=== PATIENT | female | born 1960 | race Caucasian/White ===

== ENCOUNTER 2018-11-02 22:19 | Inpatient (IN) | payer MEDICAID ==
[~2018-11-02] VITALS: Ht 152.4 cm; Wt 41.1 kg
[~2018-11-02 22:19] MED LIST: sevoflurane 250ml liquid IH ONE
[2018-11-02] MEDS ORDERED: magnesium 2GM in 50ml NS 50 ML IV PRN (22:20)
[2018-11-02] MEDS ORDERED: propofol 1000mg/100ml bottle 100 ML IV SCH (22:20)
[2018-11-02] MEDS ORDERED: potassium Cl 20mEq/100mL bag 100 ML IV PRN (22:20)
[2018-11-02] MEDS ORDERED: acetaminophen 650mg rectal suppository RC PRN (22:20)
[2018-11-02] MEDS ORDERED: magnesium 4gm in 100ml NS 100 ML IV PRN (22:20)
[2018-11-02 22:30] VITALS: BP 115/58
--- NOTE | 2018-11-02 22:30 | NUR ---
Patient arrived to unit via gurney accompanied by flight personnel, intubated and awake. Patient following commands, alert/oriented x4. Saturating at 99% on 30% FIO2 and PEEP 5. HR in low 100s in sinus tachycardia, BP 115/85 via automatic cuff. Patient's abdominal incision with woundvac running at 100mmHg at low continuous with 200mls serosanguineous drainage noted in canister upon arrival. 2 RN skin check performed. Patient arrived with TPN, propofol, LR, and TPN infusions running through PICC in R upper arm. June Lauren at bedside to assess patient, states to continue all infusions except TPN at this time. Fentanyl bag from [facility] wasted in pharmaceutical waste bin and witnessed by Deanna CORDERO.
[2018-11-02] MEDS ORDERED: propofol 1000mg/100ml bottle 100 ML IV ONE (22:39)
[2018-11-02 23:00] VITALS: BP 112/85
[2018-11-02] MEDS ORDERED: albuterol 2.5 MG/3 ML nebule NEB PRN (23:00)
[2018-11-02] MEDS: ringers solution, lacted 1,000 ML IV SCH (23:07)
[2018-11-02 23:11] LABS: ABG BASE EXCESS 0.6 mmol/L (-2.0-3.0); ABG HCO3 25.3 mmol/L (22.0-26.0); ABG OXYGEN SATURATION 97.1 % (95-98); ABG PH (T) 7.392 (7.350-7.450); ABG PO2 (T) 99.3 mmHg (83-108); ALLEN'S TEST Positive; FCOHb 0.3 % (0.5-1.5); FMetHb 0.2 % (0.3-1.12); FO2Hb 96.6 % (94-100); MINUTE VOLUME 8 L/min; PATIENT TEMPERATURE 38.2; PEEP 5 cm H2O; RESPIRATORY RATE 18 b/min; RESPIRATORY RATE (OBSERVED) 18 b/min; TIDAL VOLUME 350 mL; TOTAL HEMOGLOBIN 12.6 G/dl (12.0-16.0)
[2018-11-02] MEDS: ipratropium/albuterol 3ml nebule NEB SCH (23:19)
[2018-11-02] MEDS ORDERED: propofol 1000mg/100ml bottle 100 ML IV PRN (23:20)
[2018-11-02 23:24] LABS: BASOPHILS # (AUTO) 0.1 X10'3 (0-0.2); BASOPHILS % (AUTO) 0.4 % (0-1); EOSINOPHILS # (AUTO) 0.1 X10'3 (0-0.9); EOSINOPHILS % (AUTO) 0.6 % (0-6); HEMATOCRIT 34.7 % (35.0-45.0); HEMOGLOBIN 11.5 g/dl (12.0-16.0); LYMPHOCYTES # (AUTO) 0.8 X10'3 (1.1-4.8); LYMPHOCYTES % (AUTO) 4.8 % (21-51); MEAN CORPUSCULAR HEMOGLOBIN 28.6 PG (27.0-31.0); MEAN CORPUSCULAR HGB CONC 33.2 g/dL (33.0-36.5); MEAN CORPUSCULAR VOLUME 86.1 FL (78-98); MEAN PLATELET VOLUME 9.1 FL (7.4-10.4); MONOCYTES # (AUTO) 0.9 X10'3 (0-0.9); NEUTROPHILS # (AUTO) 15.5 X10'3 (1.8-7.7); NEUTROPHILS % (AUTO) 89.2 % (42-75); PLATELET COUNT 348 X10'3 (140-440); RED BLOOD COUNT 4.03 X10'6 (4.20-5.60); RED CELL DISTRIBUTION WIDTH 13.2 % (11.5-14.5); WHITE BLOOD COUNT 17.3 X10'3 (4.5-11.0)
[2018-11-02 23:40] LABS: PARTIAL THROMBOPLASTIN TIME 32 SECONDS (22-32)
[2018-11-02 23:42] LABS: ALANINE AMINOTRANSFERASE 25 U/L (12-78); ALBUMIN 2.3 G/DL (3.4-5.0); ALKALINE PHOSPHATASE 79 IU/L (46-116); ANION GAP 3 (8-16); ASPARTATE AMINO TRANSFERASE 18 U/L (10-37); BILIRUBIN,TOTAL 0.4 MG/DL (0.1-1.0); BLOOD UREA NITROGEN 22 MG/DL (7-18); BUN/CREATININE RATIO 53.7 (6.6-38.0); CALCIUM 7.7 MG/DL (8.5-10.1); CHLORIDE 103 MMOL/L (99-107); CREATININE 0.41 MG/DL (0.40-0.90); GLUCOSE 81 MG/DL (70-104); MAGNESIUM 1.2 MG/DL (1.5-2.4); POTASSIUM 4.4 MMOL/L (3.5-5.1); SODIUM 135 MMOL/L (135-145); TOTAL CARBON DIOXIDE 28.6 MMOL/L (24-32); TOTAL PROTEIN 4.7 G/DL (6.4-8.2); eGFR > 90 ML/MIN
--- NOTE | 2018-11-02 23:46 | NUR ---
Patient's bill at bedside. Initially appeared confrontational, insisting that he was going to "stay by her side" despite informing him that hospital policy did not allow overnight stays in the ICU. requested to speak to patient alone, patient used pen and paper to communicate with her to tell him she wants him to go rest. Patient's now more agreeable to policy, no longer confrontational, stating he will go sleep in his truck and be back "later". Gave his cell number, , left unit voluntarily.
[2018-11-02] MEDS: FENTANYL-0.9 % NACL/PF 100 ML IV PRN (23:59)
[2018-11-03] VITALS (31 sets, daily range): BP systolic 74–193; BP diastolic 50–100
[2018-11-03 00:03] LABS: TOTAL CELLS COUNTED 100
[2018-11-03 00:04] LABS: PLATELET ESTIMATE NORMAL; TOXIC VACUOLATION FEW
[2018-11-03] MEDS: AMPICILLIN IV SCH ×2 (01:30→07:24)
[2018-11-03] MEDS: NORMAL SALINE IV SCH ×2 (01:30→07:24)
[2018-11-03] MEDS ORDERED: enalaprilat dihydrate 2.5mg/2ml vial IV SCH (02:00)
[2018-11-03] MEDS ORDERED: KEN0.1O TP (02:42)
[2018-11-03] MEDS ORDERED: OMEP20TA23 PO (02:42)
[2018-11-03] MEDS ORDERED: LISI-600 PO (02:42)
[2018-11-03] MEDS ORDERED: BUDE10.2 INH (02:42)
[2018-11-03] MEDS ORDERED: ACYC-202 PO (02:42)
[2018-11-03] MEDS ORDERED: LORA10TA7 PO (02:42)
[2018-11-03] MEDS ORDERED: MULT-1180 PO (02:42)
[2018-11-03] MEDS: ipratropium/albuterol 3ml nebule NEB SCH ×6 (02:45→22:41)
[2018-11-03 03:21] LABS: BASOPHILS # (AUTO) 0.1 X10'3 (0-0.2); BASOPHILS % (AUTO) 0.4 % (0-1); EOSINOPHILS # (AUTO) 0.1 X10'3 (0-0.9); EOSINOPHILS % (AUTO) 0.8 % (0-6); HEMATOCRIT 34.7 % (35.0-45.0); HEMOGLOBIN 11.4 g/dl (12.0-16.0); LYMPHOCYTES # (AUTO) 1.5 X10'3 (1.1-4.8); MEAN CORPUSCULAR HEMOGLOBIN 28.2 PG (27.0-31.0); MEAN CORPUSCULAR HGB CONC 32.8 g/dL (33.0-36.5); MEAN PLATELET VOLUME 8.7 FL (7.4-10.4); MONOCYTES % (AUTO) 5.9 % (2-12); NEUTROPHILS # (AUTO) 14.2 X10'3 (1.8-7.7); NEUTROPHILS % (AUTO) 83.9 % (42-75); PLATELET COUNT 328 X10'3 (140-440); RED BLOOD COUNT 4.03 X10'6 (4.20-5.60); RED CELL DISTRIBUTION WIDTH 13.4 % (11.5-14.5); WHITE BLOOD COUNT 16.9 X10'3 (4.5-11.0)
--- NOTE | 2018-11-03 03:33 | NUR ---
BP persistently low with map below 60 for past hour despite decreasing propofol and fentanyl infusions, currently 64/44. Notified June Lauren INK PRINTER, states to DC propofol and start versed for sedation, states to give 250 bolus of LR as well. Will administer and will continue to monitor patient closely.
[2018-11-03 03:35] LABS: ALANINE AMINOTRANSFERASE 22 U/L (12-78); ALBUMIN 2.1 G/DL (3.4-5.0); ALKALINE PHOSPHATASE 77 IU/L (46-116); ANION GAP 7 (8-16); ASPARTATE AMINO TRANSFERASE 19 U/L (10-37); BILIRUBIN,TOTAL 0.5 MG/DL (0.1-1.0); BLOOD UREA NITROGEN 21 MG/DL (7-18); BUN/CREATININE RATIO 44.7 (6.6-38.0); CALCIUM 7.7 MG/DL (8.5-10.1); CHLORIDE 103 MMOL/L (99-107); CREATININE 0.47 MG/DL (0.40-0.90); GLUCOSE 93 MG/DL (70-104); MAGNESIUM 1.1 MG/DL (1.5-2.4); PARTIAL THROMBOPLASTIN TIME 36 SECONDS (22-32); PHOSPHORUS 3.3 MG/DL (2.3-4.5); POTASSIUM 4.6 MMOL/L (3.5-5.1); SODIUM 136 MMOL/L (135-145); TOTAL CARBON DIOXIDE 26.2 MMOL/L (24-32); TOTAL PROTEIN 4.3 G/DL (6.4-8.2); TRIGLYCERIDES 101 MG/DL (20-135); eGFR > 90 ML/MIN
[2018-11-03 03:48] LABS: PLATELET ESTIMATE NORMAL; TOTAL CELLS COUNTED 100
[2018-11-03] MEDS ORDERED: albumin (Human) 5% 250ml 250 ML IV ONE ×2 (04:15→19:45)
[2018-11-03] MEDS: midazolam 100mg in NS 100ml 100 ML IV PRN (04:17)
[2018-11-03 04:46] LABS: ABG BASE EXCESS -0.5 mmol/L (-2.0-3.0); ABG HCO3 22.8 mmol/L (22.0-26.0); ABG OXYGEN SATURATION 96.8 % (95-98); ABG PCO2 (T) 33.9 mmHg (32.0-45.0); ABG PH (T) 7.447 (7.350-7.450); ABG PO2 (T) 90.8 mmHg (83-108); ALLEN'S TEST Positive; FCOHb 0.3 % (0.5-1.5); FMetHb 0.2 % (0.3-1.12); FO2Hb 96.3 % (94-100); MINUTE VOLUME 7 L/min; PATIENT TEMPERATURE 37.7; PEEP 5 cm H2O; RESPIRATORY RATE 18 b/min; RESPIRATORY RATE (OBSERVED) 19 b/min; TIDAL VOLUME 350 mL; TOTAL HEMOGLOBIN 11.9 G/dl (12.0-16.0)
--- NOTE | 2018-11-03 05:00 | NUR ---
BP continues to be low with MAP currently at 57, new orders received for levophed. Will administer.
[2018-11-03] MEDS: NORepinephrine 8mg/ 250ml NS 250 ML IV SCH (05:33)
--- NOTE | 2018-11-03 06:31 | NUR ---
Problems reprioritized. Patient report given, questions answered & plan of care reviewed with Niranjan CORDERO.
--- NOTE | 2018-11-03 06:42 | NUR ---
Patient in room CICU 2012. I have received report from Judy CORDERO and had the opportunity to ask questions and assume patient care. Patient is awake and alert on the ventilator. Wound vac is intact on the abdomen, reviewed with both nurses at the bedside.
[2018-11-03] MEDS: ESOMEPRAZOLE 40 MG VIAL IV SCH (07:24)
[2018-11-03] MEDS: K and/or MAG REPLACEMENT MC SCH (07:25)
[2018-11-03] MEDS: ringers solution, lacted 1,000 ML IV SCH ×2 (08:40→22:00)
--- NOTE | 2018-11-03 09:24 | NUR ---
Dr. Steve stopped by and called the to inform him that he would most likely be getting this patient to surgery this afternoon or evening but is still unsure of what time.
--- NOTE | 2018-11-03 09:29 | NUR ---
TPN/Malnutrition consults: Per H&P patient transfer from [place] for higher level of care; recent colostomy closure two weeks ago with h/o perforated diverticulitis, hx bowel resection with colostomy, HTN, lupus. Transfer here for advanced surgery after surgeon at [facility] found inflammatory reaction with edema and resulting in a difficult surgery and needing more surgery to resolve issue per H&P. Currently NPO. Patient is intubated in critical care w/ wound vac to abdomen surgical site; 150ml drainage. TPN recs below; will monitor for signs of refeeding. Pt first admit w/ current scale wt 45kg, no edema, no significant weakness noted though intubated; pending additional malnutrition criteria. Recommend: 1. 2:1 TPN using Clinimix E 5/15 2L bag w/ separate 90ml (18 gm) 20% intralipids to run continuously at 70ml/hr goal; to provide total volume of 1680 ml, 84 gm protein, 252 gm dextrose will provide total calories 1373, 1037 total non protein cals, and 3.9 gm/mg/min DEX loading. 2. prealbumin Q M/, daily wts 3. monitor for TPN tolerance 4. IF gut function returns post-op; consider post-pyloric feeds per surgeon 5. upon extubation; Advance diet per surgeon post-op to low-residue Addendum: 11/03/18 at [address] Amended: Links added.
[2018-11-03] MEDS: piperacillin/tazo 3.375gm/50ml 50 ML IV SCH ×2 (09:35→16:00)
[2018-11-03] MEDS ORDERED: ACYC400T7 PO (11:27)
[2018-11-03] MEDS ORDERED: magnesium Cl slow-release 64mg tablet PO PRN (11:45)
[2018-11-03] MEDS ORDERED: Dextrose 10%-water IV solution 1,000 ML IV PRN (11:45)
[2018-11-03] MEDS ORDERED: magnesium 2GM in 50ml NS 50 ML IV PRN (11:45)
[2018-11-03] MEDS ORDERED: magnesium 4gm in 100ml NS 100 ML IV PRN (11:45)
--- NOTE | 2018-11-03 12:07 | NUR ---
F/u: Pt has no visible signs of of muscle/fat wasting and does not meet malnutrition criteria at this time; will continue to monitor. Addendum: 11/03/18 at [address] Amended: Links added.
[2018-11-03] MEDS: acetaminophen 325mg tablet PO PRN (12:09)
[2018-11-03] MEDS: FENTANYL-0.9 % NACL/PF 100 ML IV PRN (12:23)
[2018-11-03] MEDS: [UNRECOGNIZED DRUG - REMARK] IV SCH ×2 (13:49)
[2018-11-03 16:19] LABS: ALANINE AMINOTRANSFERASE 22 U/L (12-78); ALBUMIN/GLOBULIN RATIO 0.9 (1.1-1.5); ALKALINE PHOSPHATASE 67 IU/L (46-116); ANION GAP 0 (8-16); ASPARTATE AMINO TRANSFERASE 13 U/L (10-37); BILIRUBIN,TOTAL 0.5 MG/DL (0.1-1.0); BLOOD UREA NITROGEN 18 MG/DL (7-18); BUN/CREATININE RATIO 33.3 (6.6-38.0); CALCIUM 7.6 MG/DL (8.5-10.1); CHLORIDE 103 MMOL/L (99-107); CREATININE 0.54 MG/DL (0.40-0.90); GLUCOSE 113 MG/DL (70-104); MAGNESIUM 1.6 MG/DL (1.5-2.4); PHOSPHORUS 3.6 MG/DL (2.3-4.5); POTASSIUM 4.2 MMOL/L (3.5-5.1); SODIUM 133 MMOL/L (135-145); TOTAL CARBON DIOXIDE 29.9 MMOL/L (24-32); TOTAL PROTEIN 4.3 G/DL (6.4-8.2); TRIGLYCERIDES 102 MG/DL (20-135); eGFR > 90 ML/MIN
[2018-11-03] MEDS ORDERED: MIDAZolam 5mg/5ml vial ONE (18:07)
[2018-11-03] MEDS ORDERED: fentaNYL /PF 50mcg/ml 5ml ampule ONE (18:08)
[2018-11-03] MEDS ORDERED: rocuronium 10mg/ml inj IV ONE ×2 (18:09→19:51)
[2018-11-03] MEDS ORDERED: ringers solution, lacted 1,000 ML IV SCH (18:18)
[2018-11-03] MEDS ORDERED: hydrALAZINE 20mg/ml inj. IV PRN (18:20)
[2018-11-03] MEDS ORDERED: ondansetron/PF 4mg/2ml inj IV PRN (18:20)
[2018-11-03] MEDS ORDERED: labetalol 20mg/4ml (5mg/ml) syringe IV PRN (18:20)
--- NOTE | 2018-11-03 18:20 | NUR ---
Patient in room CICU 2013. I have received report from Niranjan CORDERO and had the opportunity to ask questions and assume patient care. OR crew at bedside preparing patient for transport to surgery. Patient in stable condition, awake/alert x4 and is in no apparent distress. Patient left floor via hospital bed on portable monitor and ambu-bag accompanied by OR crew.
[2018-11-03] MEDS ORDERED: FAT EMULSION IV SCH (20:00)
--- NOTE | 2018-11-03 21:30 | NUR ---
Patient arrived back from OR, intubated and sedated, accompanied by OR crew and anesthesiologist. BP currently in 180s systolically via arterial line, HR in high 90s in sinus rhythm. Anesthesiologist states to administer PRN labetolol for BP if needed. Woundvac to abdomen present running at 100mmHg continuous, surrounding skin edematous but soft. 300 ml serosanguineous drainage noted in canister upon arrival. No bowel sounds present, NG tube hooked to LIS. CXR obtained to verify CVL placement, read by Kaylee Aguilar NP and states okay to use for transfusion. From CXR reading, ACID REGENERATOR stated to advance ET tube from current placement of 19cm at teeth to 20cm.
[2018-11-03 23:31] LABS: BASOPHILS % (AUTO) 0.1 % (0-1); EOSINOPHILS # (AUTO) 0.4 X10'3 (0-0.9); EOSINOPHILS % (AUTO) 2.4 % (0-6); HEMATOCRIT 22.1 % (35.0-45.0); HEMOGLOBIN 7.3 g/dl (12.0-16.0); LYMPHOCYTES # (AUTO) 1.6 X10'3 (1.1-4.8); LYMPHOCYTES % (AUTO) 9.6 % (21-51); MEAN CORPUSCULAR HEMOGLOBIN 28.5 PG (27.0-31.0); MEAN CORPUSCULAR HGB CONC 32.9 g/dL (33.0-36.5); MEAN CORPUSCULAR VOLUME 86.7 FL (78-98); MEAN PLATELET VOLUME 9.6 FL (7.4-10.4); MONOCYTES # (AUTO) 0.6 X10'3 (0-0.9); NEUTROPHILS # (AUTO) 13.5 X10'3 (1.8-7.7); NEUTROPHILS % (AUTO) 83.9 % (42-75); PLATELET COUNT 208 X10'3 (140-440); RED BLOOD COUNT 2.55 X10'6 (4.20-5.60); RED CELL DISTRIBUTION WIDTH 13.4 % (11.5-14.5); WHITE BLOOD COUNT 16.1 X10'3 (4.5-11.0)
[2018-11-03 23:36] LABS: ANION GAP 5 (8-16); BLOOD UREA NITROGEN 15 MG/DL (7-18); BUN/CREATININE RATIO 35.7 (6.6-38.0); CALCIUM 7.1 MG/DL (8.5-10.1); CHLORIDE 104 MMOL/L (99-107); CREATININE 0.42 MG/DL (0.40-0.90); GLUCOSE 176 MG/DL (70-104); MAGNESIUM 1.1 MG/DL (1.5-2.4); PHOSPHORUS 3.5 MG/DL (2.3-4.5); POTASSIUM 3.9 MMOL/L (3.5-5.1); SODIUM 134 MMOL/L (135-145); TOTAL CARBON DIOXIDE 24.7 MMOL/L (24-32); eGFR > 90 ML/MIN
[2018-11-04] VITALS (26 sets, daily range): BP systolic 91–138; BP diastolic 50–87
[2018-11-04] MEDS: piperacillin/tazo 3.375gm/50ml 50 ML IV SCH ×3 (00:44→15:51)
[2018-11-04] MEDS ORDERED: mineral oil/petrolatum ophthal oint EACHEYE SCH (02:00)
[2018-11-04] MEDS: mineral oil/petrolatum ophthal oint EACHEYE SCH ×4 (02:30→21:06)
[2018-11-04] MEDS ORDERED: dextrose ORAL solution 15 GM/59 ML bottle PO PRN ×2 (02:45)
[2018-11-04] MEDS ORDERED: glucagon, human recombinant 1mg kit SUBCUT PRN (02:45)
[2018-11-04] MEDS ORDERED: dextrose 50%-water 50ml dispensing syringe IV PRN (02:45)
[2018-11-04] MEDS: ipratropium/albuterol 3ml nebule NEB SCH ×6 (03:07→23:00)
[2018-11-04 03:20] LABS: ABG BASE EXCESS -0.9 mmol/L (-2.0-3.0); ABG HCO3 23.8 mmol/L (22.0-26.0); ABG OXYGEN SATURATION 97.6 % (95-98); ABG PCO2 (T) 40.5 mmHg (32.0-45.0); ABG PH (T) 7.389 (7.350-7.450); ABG PO2 (T) 111.4 mmHg (83-108); FCOHb 0.3 % (0.5-1.5); FMetHb 0.2 % (0.3-1.12); FO2Hb 97.1 % (94-100); MINUTE VOLUME 7 L/min; PATIENT TEMPERATURE 37.4; PEEP 5 cm H2O; RESPIRATORY RATE 18 b/min; RESPIRATORY RATE (OBSERVED) 18 b/min; TIDAL VOLUME 350 mL; TOTAL HEMOGLOBIN 9.6 G/dl (12.0-16.0)
[2018-11-04] MEDS: insulin regular, human vial - multi-dose SQ SCH ×4 (03:31→21:33)
[2018-11-04 03:33] LABS: BASOPHILS % (AUTO) 0.1 % (0-1); EOSINOPHILS % (AUTO) 0.3 % (0-6); HEMATOCRIT 25.3 % (35.0-45.0); HEMOGLOBIN 8.4 g/dl (12.0-16.0); LYMPHOCYTES # (AUTO) 0.7 X10'3 (1.1-4.8); LYMPHOCYTES % (AUTO) 4.1 % (21-51); MEAN CORPUSCULAR HEMOGLOBIN 28.6 PG (27.0-31.0); MEAN CORPUSCULAR HGB CONC 33.3 g/dL (33.0-36.5); MEAN CORPUSCULAR VOLUME 85.8 FL (78-98); MEAN PLATELET VOLUME 9.4 FL (7.4-10.4); MONOCYTES # (AUTO) 0.6 X10'3 (0-0.9); MONOCYTES % (AUTO) 3.8 % (2-12); NEUTROPHILS # (AUTO) 15.2 X10'3 (1.8-7.7); NEUTROPHILS % (AUTO) 91.7 % (42-75); PLATELET COUNT 270 X10'3 (140-440); RED BLOOD COUNT 2.95 X10'6 (4.20-5.60); RED CELL DISTRIBUTION WIDTH 13.6 % (11.5-14.5); WHITE BLOOD COUNT 16.6 X10'3 (4.5-11.0)
[2018-11-04 03:41] LABS: PARTIAL THROMBOPLASTIN TIME 45 SECONDS (22-32)
[2018-11-04 03:43] LABS: ALANINE AMINOTRANSFERASE 13 U/L (12-78); ALBUMIN 2.2 G/DL (3.4-5.0); ALBUMIN/GLOBULIN RATIO 1.1 (1.1-1.5); ALKALINE PHOSPHATASE 45 IU/L (46-116); ANION GAP 4 (8-16); ASPARTATE AMINO TRANSFERASE 10 U/L (10-37); BLOOD UREA NITROGEN 17 MG/DL (7-18); BUN/CREATININE RATIO 36.2 (6.6-38.0); CALCIUM 7.6 MG/DL (8.5-10.1); CHLORIDE 102 MMOL/L (99-107); CREATININE 0.47 MG/DL (0.40-0.90); GLUCOSE 202 MG/DL (70-104); MAGNESIUM 1.9 MG/DL (1.5-2.4); PREALBUMIN 10.2 MG/DL (19-36); SODIUM 132 MMOL/L (135-145); TOTAL CARBON DIOXIDE 25.9 MMOL/L (24-32); TOTAL PROTEIN 4.2 G/DL (6.4-8.2); eGFR > 90 ML/MIN
[2018-11-04] MEDS: FENTANYL-0.9 % NACL/PF 100 ML IV PRN ×2 (04:09→17:27)
[2018-11-04] MEDS: ringers solution, lacted 1,000 ML IV SCH (04:40)
--- NOTE | 2018-11-04 06:33 | NUR ---
Problems reprioritized. Patient report given, questions answered & plan of care reviewed with Vandana CORDERO.
--- NOTE | 2018-11-04 06:33 | NUR ---
Problems reprioritized. Patient report given, questions answered & plan of care reviewed with Vandana CORDERO.
[2018-11-04] MEDS: K and/or MAG REPLACEMENT MC SCH (08:00)
[2018-11-04] MEDS: enoxaparin 40mg/0.4ml syringe SUBCUT SCH (08:52)
[2018-11-04] MEDS: triamcinolone acet 0.1% cream 15gm TP PRN (08:53)
[2018-11-04] MEDS: ESOMEPRAZOLE 40 MG VIAL IV SCH (08:53)
[2018-11-04] MEDS: CAL IV SCH (08:54)
[2018-11-04] MEDS: [UNRECOGNIZED DRUG - OTHER] IV SCH (08:54)
[2018-11-04] MEDS: TRACE ELEMENT IV SCH (08:54)
[2018-11-04] MEDS: midazolam 100mg in NS 100ml 100 ML IV PRN (17:27)
[2018-11-04] MEDS: acetaminophen 325mg tablet PO PRN (17:38)
--- NOTE | 2018-11-04 18:21 | NUR ---
Problems reprioritized. Patient report given, questions answered & plan of care reviewed with Tomas CORDERO.
--- NOTE | 2018-11-04 18:40 | NUR ---
Report received. A Isaac RN on duty. Pt received orally intubated. ETT secured with anchorfast @ 21cm lip #7.0. OGT right nares is clamped & secured with tape to ETT. Right IJ is transduced CVP zeroed. Right radial arterial line zeroed good wave form. Abdomen with surgical wound & wound vac @ 100 mmHg. Drainage is serosanguineous. Pt is on IV fentanyl & versed drips. TPN infusing.PICC line right upper arm. Soft wrist restraints secure.
[2018-11-04] MEDS: lactobacillus rhamnosus 10,000 MMU CELLS/CAPSULE PO SCH (21:06)
[2018-11-04] MEDS: [UNRECOGNIZED DRUG - REMARK] IV SCH ×2 (21:24)
[2018-11-04] MEDS: insulin glargine (Lantus) pen - multi-dose SQ SCH (21:34)
[2018-11-04] MEDS ORDERED: bisacodyl 10mg suppository rectal RC PRN (22:20)
--- NOTE | 2018-11-04 22:30 | NUR ---
BP 79/42 Sinus tach HR 101 Levophed started as ordered. Call placed to Samantha Cuello for update.
[2018-11-04] MEDS: NORepinephrine 8mg/ 250ml NS 250 ML IV SCH (22:45)
[2018-11-04] MEDS ORDERED: normal saline 1000ml 1,000 ML IV ONE (23:25)
--- NOTE | 2018-11-04 23:35 | NUR ---
NS fluid bolus started BP 109/58 Pt remains wakeful denies pain. Rhythm is sinus 100. O2 sat is 100% on 30% Fio2.
[2018-11-05] VITALS (26 sets, daily range): BP systolic 99–145; BP diastolic 50–74
[2018-11-05] MEDS: piperacillin/tazo 3.375gm/50ml 50 ML IV SCH ×4 (00:29→23:42)
[2018-11-05] MEDS: mineral oil/petrolatum ophthal oint EACHEYE SCH ×4 (02:29→20:22)
[2018-11-05] MEDS: insulin regular, human vial - multi-dose SQ SCH ×3 (02:29→20:38)
[2018-11-05 02:34] LABS: BASOPHILS % (AUTO) 0.2 % (0-1); EOSINOPHILS # (AUTO) 0.1 X10'3 (0-0.9); EOSINOPHILS % (AUTO) 0.5 % (0-6); LYMPHOCYTES # (AUTO) 1.6 X10'3 (1.1-4.8); LYMPHOCYTES % (AUTO) 9.6 % (21-51); MEAN CORPUSCULAR HEMOGLOBIN 29.4 PG (27.0-31.0); MEAN CORPUSCULAR HGB CONC 34.4 g/dL (33.0-36.5); MEAN CORPUSCULAR VOLUME 85.4 FL (78-98); MONOCYTES # (AUTO) 1.7 X10'3 (0-0.9); MONOCYTES % (AUTO) 10.4 % (2-12); NEUTROPHILS % (AUTO) 79.3 % (42-75); PLATELET COUNT 208 X10'3 (140-440); RED BLOOD COUNT 1.86 X10'6 (4.20-5.60); RED CELL DISTRIBUTION WIDTH 13.4 % (11.5-14.5); WHITE BLOOD COUNT 16.5 X10'3 (4.5-11.0)
[2018-11-05 02:39] LABS: HEMOGLOBIN 5.5 g/dl (12.0-16.0)
[2018-11-05 02:40] LABS: HEMATOCRIT 15.9 % (35.0-45.0)
[2018-11-05 02:42] LABS: PARTIAL THROMBOPLASTIN TIME 39 SECONDS (22-32)
[2018-11-05 02:46] LABS: ALANINE AMINOTRANSFERASE 16 U/L (12-78); ALBUMIN 1.5 G/DL (3.4-5.0); ALBUMIN/GLOBULIN RATIO 0.7 (1.1-1.5); ALKALINE PHOSPHATASE 48 IU/L (46-116); ANION GAP 2 (8-16); ASPARTATE AMINO TRANSFERASE 14 U/L (10-37); BILIRUBIN,TOTAL 0.8 MG/DL (0.1-1.0); BLOOD UREA NITROGEN 16 MG/DL (7-18); BUN/CREATININE RATIO 38.1 (6.6-38.0); CALCIUM 7.5 MG/DL (8.5-10.1); CHLORIDE 106 MMOL/L (99-107); CREATININE 0.42 MG/DL (0.40-0.90); GLUCOSE 100 MG/DL (70-104); MAGNESIUM 1.6 MG/DL (1.5-2.4); PHOSPHORUS 2.7 MG/DL (2.3-4.5); POTASSIUM 3.6 MMOL/L (3.5-5.1); SODIUM 135 MMOL/L (135-145); TOTAL CARBON DIOXIDE 26.9 MMOL/L (24-32); TOTAL PROTEIN 3.7 G/DL (6.4-8.2); eGFR > 90 ML/MIN
[2018-11-05] MEDS: ipratropium/albuterol 3ml nebule NEB SCH ×6 (03:39→23:53)
[2018-11-05 03:50] LABS: ABG BASE EXCESS 2.9 mmol/L (-2.0-3.0); ABG HCO3 27.4 mmol/L (22.0-26.0); ABG OXYGEN SATURATION 97.6 % (95-98); ABG PCO2 (T) 42.1 mmHg (32.0-45.0); ABG PH (T) 7.432 (7.350-7.450); ABG PO2 (T) 106.4 mmHg (83-108); FCOHb 0.1 % (0.5-1.5); FMetHb 0.4 % (0.3-1.12); FO2Hb 97.1 % (94-100); MINUTE VOLUME 9 L/min; PATIENT TEMPERATURE 37.3; PEEP 5 cm H2O; RESPIRATORY RATE 18 b/min; RESPIRATORY RATE (OBSERVED) 18 b/min; TIDAL VOLUME 350 mL; TOTAL HEMOGLOBIN 6.2 G/dl (12.0-16.0)
--- NOTE | 2018-11-05 04:45 | NUR ---
Blood transfusion started for HGB 5.5.
[2018-11-05] MEDS: NORepinephrine 8mg/ 250ml NS 250 ML IV SCH (05:10)
--- NOTE | 2018-11-05 06:15 | NUR ---
Problems reprioritized. Patient report given, questions answered & plan of care reviewed with Vandana CORDERO.
--- NOTE | 2018-11-05 06:15 | NUR ---
Patient in room CICU 2012. I have received report from Sonali CORDERO and had the opportunity to ask questions and assume patient care. PAtient receiving blood transfusion for low Hemoglobin of 5.5.
--- NOTE | 2018-11-05 06:18 | NUR ---
Blood transfusion complete. No reaction noted.
[2018-11-05] MEDS: K and/or MAG REPLACEMENT MC SCH (08:00)
[2018-11-05] MEDS: enoxaparin 40mg/0.4ml syringe SUBCUT SCH (09:24)
[2018-11-05] MEDS: ESOMEPRAZOLE 40 MG VIAL IV SCH (09:25)
[2018-11-05] MEDS: triamcinolone acet 0.1% cream 15gm TP PRN (09:25)
[2018-11-05] MEDS: lactobacillus rhamnosus 10,000 MMU CELLS/CAPSULE PO SCH ×2 (09:25→20:22)
--- NOTE | 2018-11-05 09:32 | NUR ---
F/u: Pt has no visible signs of of muscle/fat wasting and does not meet malnutrition criteria at this time; will continue to monitor. TPN/Malnutrition consults: Per H&P patient transfer from [place] for higher level of care; recent colostomy closure two weeks ago with h/o perforated diverticulitis, hx bowel resection with colostomy, HTN, lupus. Transfer here for advanced surgery after surgeon at [facility] found inflammatory reaction with edema and resulting in a difficult surgery and needing more surgery to resolve issue per H&P. Currently NPO. Patient is intubated in critical care w/ wound vac to abdomen surgical site; 150ml drainage. TPN recs below; will monitor for signs of refeeding. Pt first admit w/ current scale wt 45kg, no edema, no significant weakness noted though intubated; pending additional malnutrition criteria. Recommend: 1. 2:1 TPN using Clinimix E 5/15 2L bag to run continuously at 70ml/hr goal and separate 90ml 20% intralipids to run for 12 hours every day to provide 18 grams lipids; This will provide total volume of 1680 ml, 84 gm protein, 252 gm dextrose will provide total calories 1373, 1037 total non protein cals, and 3.9 gm/mg/min DEX loading. 2. prealbumin Q M/, daily wts 3. monitor for TPN tolerance 4. IF gut function returns post-op; consider post-pyloric feeds per surgeon 5. upon extubation; Advance diet per surgeon post-op to low-residue Addendum: 11/05/18 at [address] Amended: Links added.
[2018-11-05 10:31] LABS: MEAN CORPUSCULAR HEMOGLOBIN 28.3 PG (27.0-31.0); MEAN CORPUSCULAR VOLUME 85.9 FL (78-98); MEAN PLATELET VOLUME 9.7 FL (7.4-10.4); PLATELET COUNT 210 X10'3 (140-440); RED BLOOD COUNT 2.35 X10'6 (4.20-5.60); RED CELL DISTRIBUTION WIDTH 13.3 % (11.5-14.5); WHITE BLOOD COUNT 14.8 X10'3 (4.5-11.0)
[2018-11-05 11:11] LABS: HEMATOCRIT 20.2 % (35.0-45.0); HEMOGLOBIN 6.7 g/dl (12.0-16.0)
--- NOTE | 2018-11-05 11:57 | NUR ---
ordered one unit of blood per Dr. Barakat for H/H of 6.7/20.2
[2018-11-05] MEDS: CAL IV SCH (12:11)
[2018-11-05] MEDS: TRACE ELEMENT IV SCH (12:11)
[2018-11-05] MEDS: [UNRECOGNIZED DRUG - OTHER] IV SCH (12:11)
--- NOTE | 2018-11-05 12:14 | NUR ---
Reassessment: Pt remains intubated and tolerating TPN at goal rate. Noted that lipids currently running at half of recommended rate, d/w pharmacy who states pt was receiving 20% intralipids at 3.75 mL/hr for 12 hrs two times a day however to be adjusted to 7.5 mL/hr for 12 hours a day to meet lipid recommendations. Pt to go to OR tomorrow for takedown and abdominal closure per MD notes. Will continue to follow. F/u: Pt has no visible signs of of muscle/fat wasting and does not meet malnutrition criteria at this time; will continue to monitor. TPN/Malnutrition consults: Per H&P patient transfer from [place] for higher level of care; recent colostomy closure two weeks ago with h/o perforated diverticulitis, hx bowel resection with colostomy, HTN, lupus. Transfer here for advanced surgery after surgeon at [facility] found inflammatory reaction with edema and resulting in a difficult surgery and needing more surgery to resolve issue per H&P. Currently NPO. Patient is intubated in critical care w/ wound vac to abdomen surgical site; 150ml drainage. TPN recs below; will monitor for signs of refeeding. Pt first admit w/ current scale wt 45kg, no edema, no significant weakness noted though intubated; pending additional malnutrition criteria. Recommend: 1. 2:1 TPN using Clinimix E 5/15 2L bag to run continuously at 70ml/hr goal and separate 90ml 20% intralipids to run for 12 hours every day to provide 18 grams lipids; This will provide total volume of 1680 ml, 84 gm protein, 252 gm dextrose will provide total calories 1373, 1037 total non protein cals, and 3.9 gm/mg/min DEX loading. 2. prealbumin Q M/Th, daily wts 3. monitor for TPN tolerance 4. IF gut function returns post-op; consider post-pyloric feeds per surgeon 5. upon extubation; Advance diet per surgeon post-op to low-residue Addendum: 11/05/18 at [address] Amended: Links added.
[2018-11-05] MEDS: dextrose 50%-water 50ml dispensing syringe IV PRN (14:51)
[2018-11-05] MEDS: FENTANYL-0.9 % NACL/PF 100 ML IV PRN (17:17)
--- NOTE | 2018-11-05 18:30 | NUR ---
Patient in room CICU 2012. I have received report from Vandana CORDERO and had the opportunity to ask questions and assume patient care. Remains intubated, on CPAP mode with PS FIO2 is 30 %. On Levophed, versed , fentanyl/ TPN/and intralipids. No distress. Sedated.
[2018-11-05] MEDS ORDERED: FAT EMULSION IV SCH (20:00)
[2018-11-05] MEDS: FAT EMULSION IV SCH (20:08)
[2018-11-05] MEDS: insulin glargine (Lantus) pen - multi-dose SQ SCH (20:37)
[2018-11-05 21:39] LABS: HEMATOCRIT 25.2 % (35.0-45.0); HEMOGLOBIN 8.7 g/dl (12.0-16.0); MEAN CORPUSCULAR HEMOGLOBIN 29.5 PG (27.0-31.0); MEAN CORPUSCULAR HGB CONC 34.6 g/dL (33.0-36.5); MEAN CORPUSCULAR VOLUME 85.2 FL (78-98); MEAN PLATELET VOLUME 9.4 FL (7.4-10.4); PLATELET COUNT 208 X10'3 (140-440); RED BLOOD COUNT 2.96 X10'6 (4.20-5.60); RED CELL DISTRIBUTION WIDTH 13.5 % (11.5-14.5); WHITE BLOOD COUNT 14.1 X10'3 (4.5-11.0)
[2018-11-05] MEDS: [UNRECOGNIZED DRUG - REMARK] IV SCH ×2 (23:53)
[2018-11-06] VITALS (16 sets, daily range): BP systolic 95–127; BP diastolic 52–66
[2018-11-06 03:19] LABS: BASOPHILS # (AUTO) 0.1 X10'3 (0-0.2); BASOPHILS % (AUTO) 0.4 % (0-1); EOSINOPHILS # (AUTO) 1.3 X10'3 (0-0.9); EOSINOPHILS % (AUTO) 9.2 % (0-6); HEMATOCRIT 25.7 % (35.0-45.0); HEMOGLOBIN 9.1 g/dl (12.0-16.0); LYMPHOCYTES # (AUTO) 2.2 X10'3 (1.1-4.8); LYMPHOCYTES % (AUTO) 16.1 % (21-51); MEAN CORPUSCULAR HEMOGLOBIN 30.3 PG (27.0-31.0); MEAN CORPUSCULAR HGB CONC 35.6 g/dL (33.0-36.5); MEAN PLATELET VOLUME 9.3 FL (7.4-10.4); MONOCYTES # (AUTO) 1.5 X10'3 (0-0.9); MONOCYTES % (AUTO) 10.8 % (2-12); NEUTROPHILS # (AUTO) 8.7 X10'3 (1.8-7.7); NEUTROPHILS % (AUTO) 63.5 % (42-75); PLATELET COUNT 215 X10'3 (140-440); RED BLOOD COUNT 3.02 X10'6 (4.20-5.60); WHITE BLOOD COUNT 13.7 X10'3 (4.5-11.0)
[2018-11-06 03:24] LABS: PARTIAL THROMBOPLASTIN TIME 30 SECONDS (22-32)
[2018-11-06 03:30] LABS: ALANINE AMINOTRANSFERASE 24 U/L (12-78); ALBUMIN 1.5 G/DL (3.4-5.0); ALBUMIN/GLOBULIN RATIO 0.5 (1.1-1.5); ALKALINE PHOSPHATASE 98 IU/L (46-116); ANION GAP 4 (8-16); ASPARTATE AMINO TRANSFERASE 21 U/L (10-37); BILIRUBIN,TOTAL 1.5 MG/DL (0.1-1.0); BLOOD UREA NITROGEN 17 MG/DL (7-18); BUN/CREATININE RATIO 32.7 (6.6-38.0); CHLORIDE 105 MMOL/L (99-107); CREATININE 0.52 MG/DL (0.40-0.90); GLUCOSE 83 MG/DL (70-104); MAGNESIUM 1.5 MG/DL (1.5-2.4); PHOSPHORUS 3.2 MG/DL (2.3-4.5); POTASSIUM 3.5 MMOL/L (3.5-5.1); SODIUM 137 MMOL/L (135-145); TOTAL CARBON DIOXIDE 28.2 MMOL/L (24-32); TOTAL PROTEIN 4.5 G/DL (6.4-8.2); eGFR > 90 ML/MIN
[2018-11-06] MEDS: ipratropium/albuterol 3ml nebule NEB SCH ×6 (03:49→22:36)
[2018-11-06 04:01] LABS: ABG BASE EXCESS 2.1 mmol/L (-2.0-3.0); ABG HCO3 26.4 mmol/L (22.0-26.0); ABG PCO2 (T) 40.5 mmHg (32.0-45.0); ABG PH (T) 7.433 (7.350-7.450); ABG PO2 (T) 118.5 mmHg (83-108); FCOHb 0.3 % (0.5-1.5); FMetHb 0.2 % (0.3-1.12); FO2Hb 97.5 % (94-100); MINUTE VOLUME 6 L/min; PATIENT TEMPERATURE 37.4; PEEP 5 cm H2O; RESPIRATORY RATE (OBSERVED) 12 b/min; TOTAL HEMOGLOBIN 9.7 G/dl (12.0-16.0)
--- NOTE | 2018-11-06 06:20 | NUR ---
Problems reprioritized. Patient report given, questions answered & plan of care reviewed with Vandana CORDERO.
[2018-11-06] MEDS: mineral oil/petrolatum ophthal oint EACHEYE SCH ×4 (08:00→20:00)
[2018-11-06] MEDS: FAT EMULSION IV SCH ×2 (08:00→09:03)
[2018-11-06] MEDS: piperacillin/tazo 3.375gm/50ml 50 ML IV SCH ×2 (09:03→15:23)
[2018-11-06] MEDS: TRACE ELEMENT IV SCH (09:04)
[2018-11-06] MEDS: CAL IV SCH (09:04)
[2018-11-06] MEDS: [UNRECOGNIZED DRUG - OTHER] IV SCH (09:04)
[2018-11-06] MEDS: enoxaparin 40mg/0.4ml syringe SUBCUT SCH (09:05)
[2018-11-06] MEDS: lactobacillus rhamnosus 10,000 MMU CELLS/CAPSULE PO SCH ×2 (09:05→20:00)
[2018-11-06] MEDS: ESOMEPRAZOLE 40 MG VIAL IV SCH (09:06)
[2018-11-06] MEDS: FENTANYL-0.9 % NACL/PF 100 ML IV PRN (09:10)
[2018-11-06] MEDS: insulin regular, human vial - multi-dose SQ SCH (15:25)
--- NOTE | 2018-11-06 18:15 | NUR ---
Patient in room CICU 2012. I have received report from Vandana CORDERO and had the opportunity to ask questions and assume patient care. Pt remains intubated, ETT secure with anchorfast. NGT right nares is taped securely to ETT and drains green fluid. Right IJ is transduced for CVP reading. Right radial arterial line with good wave form, fingers are warm with brisk capillary refill. Right upper arm PICC line with fentanyl/versed, TPN & Intralipids infusing. Patient is wakeful, mouths words, communicates with hand gestures and is able to write.Abdomen with wound vac and is draining serosanguineous fluid. No distress resting comfortably.
[2018-11-06] MEDS: [UNRECOGNIZED DRUG - REMARK] IV SCH ×2 (18:50)
[2018-11-06] MEDS: insulin glargine (Lantus) pen - multi-dose SQ SCH (21:00)
[2018-11-07] VITALS (33 sets, daily range): BP systolic 97–151; BP diastolic 51–99
[2018-11-07] MEDS: piperacillin/tazo 3.375gm/50ml 50 ML IV SCH ×4 (00:23→23:29)
[2018-11-07] MEDS: mineral oil/petrolatum ophthal oint EACHEYE SCH ×4 (02:00→21:22)
[2018-11-07 02:35] LABS: BASOPHILS # (AUTO) 0.1 X10'3 (0-0.2); BASOPHILS % (AUTO) 0.7 % (0-1); EOSINOPHILS # (AUTO) 1.6 X10'3 (0-0.9); EOSINOPHILS % (AUTO) 14.7 % (0-6); HEMATOCRIT 26.9 % (35.0-45.0); HEMOGLOBIN 9.2 g/dl (12.0-16.0); LYMPHOCYTES # (AUTO) 2.3 X10'3 (1.1-4.8); LYMPHOCYTES % (AUTO) 20.5 % (21-51); MEAN CORPUSCULAR HEMOGLOBIN 29.4 PG (27.0-31.0); MEAN CORPUSCULAR HGB CONC 34.2 g/dL (33.0-36.5); MEAN CORPUSCULAR VOLUME 86.2 FL (78-98); MEAN PLATELET VOLUME 8.2 FL (7.4-10.4); MONOCYTES % (AUTO) 8.9 % (2-12); NEUTROPHILS # (AUTO) 6.2 X10'3 (1.8-7.7); NEUTROPHILS % (AUTO) 55.2 % (42-75); PLATELET COUNT 260 X10'3 (140-440); RED BLOOD COUNT 3.12 X10'6 (4.20-5.60); RED CELL DISTRIBUTION WIDTH 13.7 % (11.5-14.5); WHITE BLOOD COUNT 11.2 X10'3 (4.5-11.0)
[2018-11-07] MEDS: ipratropium/albuterol 3ml nebule NEB SCH ×6 (02:38→22:31)
[2018-11-07 02:48] LABS: ALANINE AMINOTRANSFERASE 25 U/L (12-78); ALBUMIN 1.6 G/DL (3.4-5.0); ALBUMIN/GLOBULIN RATIO 0.5 (1.1-1.5); ALKALINE PHOSPHATASE 176 IU/L (46-116); ANION GAP 3 (8-16); ASPARTATE AMINO TRANSFERASE 22 U/L (10-37); BLOOD UREA NITROGEN 16 MG/DL (7-18); CALCIUM 8.8 MG/DL (8.5-10.1); CHLORIDE 103 MMOL/L (99-107); CREATININE 0.47 MG/DL (0.40-0.90); GLUCOSE 119 MG/DL (70-104); MAGNESIUM 1.6 MG/DL (1.5-2.4); PHOSPHORUS 4.1 MG/DL (2.3-4.5); POTASSIUM 3.8 MMOL/L (3.5-5.1); SODIUM 135 MMOL/L (135-145); TOTAL CARBON DIOXIDE 28.9 MMOL/L (24-32); TOTAL PROTEIN 4.8 G/DL (6.4-8.2); eGFR > 90 ML/MIN
[2018-11-07 03:02] LABS: PARTIAL THROMBOPLASTIN TIME 27 SECONDS (22-32)
[2018-11-07 03:21] LABS: ABG BASE EXCESS 3.3 mmol/L (-2.0-3.0); ABG HCO3 26.7 mmol/L (22.0-26.0); ABG OXYGEN SATURATION 97.3 % (95-98); ABG PCO2 (T) 36.7 mmHg (32.0-45.0); ABG PH (T) 7.481 (7.350-7.450); ABG PO2 (T) 98.4 mmHg (83-108); FCOHb 0.3 % (0.5-1.5); FMetHb 0.3 % (0.3-1.12); FO2Hb 96.7 % (94-100); MINUTE VOLUME 5 L/min; PATIENT TEMPERATURE 37.4; PEEP 5 cm H2O; RESPIRATORY RATE 0 b/min; RESPIRATORY RATE (OBSERVED) 12 b/min; TIDAL VOLUME 439 mL; TOTAL HEMOGLOBIN 10.2 G/dl (12.0-16.0)
--- NOTE | 2018-11-07 05:00 | NUR ---
Complete bath rendered. CHG & Bard wipes for abby care & Fernandes. Linen & gown changed. Patient alert & calm. Remains on fentanyl & versed drips. Patient is aware of scheduled surgery this morning.
[2018-11-07] MEDS: FENTANYL-0.9 % NACL/PF 100 ML IV PRN ×2 (05:21→15:07)
[2018-11-07] MEDS: NORepinephrine 8mg/ 250ml NS 250 ML IV SCH (05:34)
--- NOTE | 2018-11-07 06:17 | NUR ---
Problems reprioritized. Patient report given, questions answered & plan of care reviewed with Nathaly CORDERO.
--- NOTE | 2018-11-07 06:45 | NUR ---
Patient in room [facility] 2013. I have received report from Sonali CORDERO and had the opportunity to ask questions and assume patient care. Addendum: 11/07/18 at 0645 by Nathaly Murray RN Amended: Links added.
[2018-11-07] MEDS: enoxaparin 40mg/0.4ml syringe SUBCUT SCH (06:54)
[2018-11-07] MEDS: lactobacillus rhamnosus 10,000 MMU CELLS/CAPSULE PO SCH ×2 (08:00→20:00)
[2018-11-07] MEDS: ESOMEPRAZOLE 40 MG VIAL IV SCH (08:26)
[2018-11-07] MEDS: CAL IV SCH (08:27)
[2018-11-07] MEDS: [UNRECOGNIZED DRUG - OTHER] IV SCH (08:27)
[2018-11-07] MEDS: TRACE ELEMENT IV SCH (08:27)
[2018-11-07] MEDS: FAT EMULSION IV SCH (08:41)
--- NOTE | 2018-11-07 09:42 | NUR ---
OR stated pt. will have surgery to close abdomen at alpprox. 1200 today. RN has pt's sign consent.
--- NOTE | 2018-11-07 10:05 | NUR ---
Dr. Velázquez in to see pt. and family.
--- NOTE | 2018-11-07 11:26 | NUR ---
Family at bedside. Pt. remains stable. Awaiting OR.
[2018-11-07] MEDS: midazolam 100mg in NS 100ml 100 ML IV PRN (11:38)
--- NOTE | 2018-11-07 14:38 | NUR ---
OR called to state they would be here to get pt. in about an hour.
[2018-11-07] MEDS ORDERED: furosemide 20 MG/2 ML vial ONE (15:00)
[2018-11-07] MEDS ORDERED: sevoflurane 250ml liquid IH ONE (15:00)
--- NOTE | 2018-11-07 15:36 | NUR ---
[facility] 9 12 TUTOR here to transport pt. to OR for surgery per Dr. Steve. Family left for now.
[2018-11-07] MEDS ORDERED: rocuronium 10mg/ml inj IV ONE (16:43)
[2018-11-07] MEDS ORDERED: labetalol 20mg/4ml (5mg/ml) syringe IV ONE (16:43)
--- NOTE | 2018-11-07 17:09 | NUR ---
Back from OR with abdominal dressing in place. Pt. hypertensive. 1cc Labetolol administered per Dr. Barraza.
--- NOTE | 2018-11-07 18:15 | NUR ---
Patient in room CICU 2012. I have received report from Nathaly CORDERO and had the opportunity to ask questions and assume patient care. Patient is recovering post op. VSS Intubated on AC/VC mode Rate 18 FIO2 30% TV 350 +5 PEEP O2 sat is 100%. Pt is on IV fentanyl/versed & TPN. Sedation is moderate/arousible. Abdominal dressing is clean & dry with small faded spot of red drainage on tape. Area marked. ETT is secured with anchorfast. Right nares NGT is taped securely to ETT. Right IJ TLC is transduced/zeroed. Levophed is off at this time. Proximal port aspirated & flushed with NS. Medial port with zosyn infusing. PICC line right upper arm with TPN via red port & fentanyl/versed infusing via purple port. No distress.
[2018-11-07] MEDS: [UNRECOGNIZED DRUG - REMARK] IV SCH ×2 (18:24)
[2018-11-07] MEDS: insulin glargine (Lantus) pen - multi-dose SQ SCH (21:16)
[2018-11-07] MEDS: insulin regular, human vial - multi-dose SQ SCH (21:20)
--- NOTE | 2018-11-07 22:19 | NUR ---
Temp 38.6 jazlyn placed to [facility] Blood cultures ordered x2
[2018-11-07] MEDS ORDERED: FENTANYL-0.9 % NACL/PF 100 ML IV PRN (23:57)
[2018-11-08] VITALS (23 sets, daily range): BP systolic 96–141; BP diastolic 72–90
[2018-11-08] MEDS: mineral oil/petrolatum ophthal oint EACHEYE SCH ×4 (01:51→20:00)
[2018-11-08] MEDS: insulin regular, human vial - multi-dose SQ SCH ×2 (02:15→21:12)
[2018-11-08 02:47] LABS: BASOPHILS % (AUTO) 0.4 % (0-1); EOSINOPHILS # (AUTO) 1.3 X10'3 (0-0.9); EOSINOPHILS % (AUTO) 10.2 % (0-6); HEMATOCRIT 31.6 % (35.0-45.0); HEMOGLOBIN 10.6 g/dl (12.0-16.0); LYMPHOCYTES # (AUTO) 1.6 X10'3 (1.1-4.8); LYMPHOCYTES % (AUTO) 12.5 % (21-51); MEAN CORPUSCULAR HEMOGLOBIN 29.3 PG (27.0-31.0); MEAN CORPUSCULAR HGB CONC 33.5 g/dL (33.0-36.5); MEAN CORPUSCULAR VOLUME 87.5 FL (78-98); MONOCYTES # (AUTO) 0.8 X10'3 (0-0.9); MONOCYTES % (AUTO) 6.4 % (2-12); NEUTROPHILS % (AUTO) 70.5 % (42-75); PLATELET COUNT 301 X10'3 (140-440); RED BLOOD COUNT 3.62 X10'6 (4.20-5.60); RED CELL DISTRIBUTION WIDTH 14.1 % (11.5-14.5); WHITE BLOOD COUNT 12.7 X10'3 (4.5-11.0)
[2018-11-08] MEDS: ipratropium/albuterol 3ml nebule NEB SCH ×6 (02:49→23:00)
[2018-11-08 02:59] LABS: CLARITY,URINE CLEAR (Clear); COLOR,URINE YELLOW (Yellow); GLUCOSE, URINE NEGATIVE (Neg); KETONES,URINE NEGATIVE (Neg); LEUKOCYTE ESTERASE ,URINE NEGATIVE (Neg); NITRITES, URINE NEGATIVE (Neg); OCCULT BLOOD,URINE NEGATIVE (Neg); PROTEIN,URINE NEGATIVE (Neg); UROBILINOGEN,URINE 0.2 E.U/dL (0.2-1.0)
[2018-11-08 03:00] LABS: ALANINE AMINOTRANSFERASE 27 U/L (12-78); ALBUMIN 1.6 G/DL (3.4-5.0); ALBUMIN/GLOBULIN RATIO 0.5 (1.1-1.5); ALKALINE PHOSPHATASE 240 IU/L (46-116); ANION GAP 2 (8-16); ASPARTATE AMINO TRANSFERASE 17 U/L (10-37); BILIRUBIN,TOTAL 1.2 MG/DL (0.1-1.0); BLOOD UREA NITROGEN 19 MG/DL (7-18); BUN/CREATININE RATIO 39.6 (6.6-38.0); CHLORIDE 101 MMOL/L (99-107); CREATININE 0.48 MG/DL (0.40-0.90); GLUCOSE 111 MG/DL (70-104); MAGNESIUM 1.5 MG/DL (1.5-2.4); PHOSPHORUS 3.9 MG/DL (2.3-4.5); POTASSIUM 4.2 MMOL/L (3.5-5.1); PREALBUMIN 16.4 MG/DL (19-36); SODIUM 132 MMOL/L (135-145); TOTAL CARBON DIOXIDE 28.6 MMOL/L (24-32); TOTAL PROTEIN 4.9 G/DL (6.4-8.2); eGFR > 90 ML/MIN
[2018-11-08 03:02] LABS: PARTIAL THROMBOPLASTIN TIME 27 SECONDS (22-32)
[2018-11-08 03:03] LABS: UA COLLECTION TYPE FOLEY CATH
--- NOTE | 2018-11-08 04:29 | NUR ---
Call placed to Samantha Cuello regarding low urine output & am labs. Orders received.
[2018-11-08] MEDS ORDERED: albumin (human) 25% 100 ML IV solution IV ONE (04:30)
[2018-11-08 04:45] LABS: ABG BASE EXCESS 3.4 mmol/L (-2.0-3.0); ABG HCO3 27.6 mmol/L (22.0-26.0); ABG OXYGEN SATURATION 97.3 % (95-98); ABG PCO2 (T) 41.7 mmHg (32.0-45.0); ABG PH (T) 7.441 (7.350-7.450); ABG PO2 (T) 103.6 mmHg (83-108); ALLEN'S TEST Positive; FCOHb 0.3 % (0.5-1.5); FMetHb 0.3 % (0.3-1.12); FO2Hb 96.7 % (94-100); MINUTE VOLUME 7 L/min; PATIENT TEMPERATURE 37.9; PEEP 5 cm H2O; RESPIRATORY RATE 18 b/min; RESPIRATORY RATE (OBSERVED) 21 b/min; TIDAL VOLUME 350 mL; TOTAL HEMOGLOBIN 11.4 G/dl (12.0-16.0)
--- NOTE | 2018-11-08 06:12 | NUR ---
Problems reprioritized. Patient report given, questions answered & plan of care reviewed with Nathaly CORDERO.
--- NOTE | 2018-11-08 06:20 | NUR ---
Patient in room [facility] 2013. I have received report from Sonali CORDERO and had the opportunity to ask questions and assume patient care. Addendum: 11/08/18 at 0621 by Nathaly Murray RN Amended: Links added.
[2018-11-08] MEDS: [UNRECOGNIZED DRUG - OTHER] IV SCH (06:40)
[2018-11-08] MEDS: CAL IV SCH (06:40)
[2018-11-08] MEDS: TRACE ELEMENT IV SCH (06:40)
[2018-11-08] MEDS: dextrose 50%-water 50ml dispensing syringe IV PRN (07:18)
[2018-11-08] MEDS: piperacillin/tazo 3.375gm/50ml 50 ML IV SCH (07:23)
[2018-11-08] MEDS: FAT EMULSION IV SCH (07:29)
[2018-11-08] MEDS: lactobacillus rhamnosus 10,000 MMU CELLS/CAPSULE PO SCH ×2 (07:53→20:00)
[2018-11-08] MEDS: ESOMEPRAZOLE 40 MG VIAL IV SCH (07:53)
[2018-11-08] MEDS: enoxaparin 40mg/0.4ml syringe SUBCUT SCH (07:54)
--- NOTE | 2018-11-08 10:51 | NUR ---
Dr. Barakat notified of pt's hypoglycemia today in which pt. had to receive 1/2 amp D50. TPN will be adjusted. Order received for Dilaudid [employer] now that pt. is extubated and Fentanyl and Versed are off.
[2018-11-08] MEDS: HYDROmorphone/NS 1 mg/ml CADD 50 ML IV SCH ×9 (11:00→23:00)
[2018-11-08] MEDS ORDERED: CADD PCA waste documentation MC SCH (11:00)
--- NOTE | 2018-11-08 11:49 | NUR ---
Reassessment: Patient is extubated. Tolerating TPN at goal rate. Patient had one low blood glucose of 50 mg/dl, now that patient is extubated can provide higher dextrose d/w MD, pharmacy, and RN at rounds. Patient had abdominal wound closure yesterday 11/07. Will continue to follow. Recommend: 1. 2:1 TPN using Clinimix E 10/18 to run continuously for 24 hours each day at 60 ml/hr goal will provide total volume of 1440 ml, 72 gm protein, 288 gm dextrose, 1447 total cals, 1159 total non protein calories, and 4.4 mg/kg/min dextrose loading. 2. Separate 90 ml 20% intralipids to run for 12 hours every day to provide 18 grams of lipids and total of 180 cals. 2. prealbumin Q /, daily wts 3. monitor for TPN tolerance 4. Advance diet as medically indicated to low residue when OK by surgeon Addendum: 11/08/18 at [address] Amended: Links added.
--- NOTE | 2018-11-08 13:35 | NUR ---
Pt. doing well s/p extubation. at bedside. Pt.'s pain is controlled with Dilaudid DOUBLE CUTTER. VSS.
[2018-11-08] MEDS: ondansetron/PF 4mg/2ml inj IV PRN ×2 (15:36→23:10)
[2018-11-08] MEDS ORDERED: [UNRECOGNIZED DRUG - REMARK] IV SCH ×2 (18:00)
--- NOTE | 2018-11-08 18:15 | NUR ---
Patient in room CICU 2012. I have received report from Nathaly CORDERO and had the opportunity to ask questions and assume patient care. Pt received alert & oriented on room air saturating 94-97% On CAD pump with dilaudid for pain. TPN infusing via right upper arm PICC line. Right IJ TLC is transduced. NGT to right nares is taped securely to nose, drainage is dark green. Abdominal dressing with increased area of drainage. Dressing is dry. Abdomen is soft/tender & distended. Pt is passing flatus. Fernandes drains clear saed colored urine and is being collected x 24 hrs. Urine is on ice. Pt is in good spirits, & grand children at bedside. No distress.
[2018-11-08] MEDS ORDERED: proCHLORperazine 10 MG/2 ml inj IV ONE (19:10)
[2018-11-08] MEDS: insulin glargine (Lantus) pen - multi-dose SQ SCH (21:10)
--- NOTE | 2018-11-08 23:52 | NUR ---
Bowels moved, liquid light brown stool passed small amount. NGT with thick green clots, irrigated with sterile water & return is 400ml dark green liquid. Abdominal pain is 0/10. CHG bath rendered, Fernandes care with done Bard wipes. Linen and gown changed. Patient actively assists in repositioning.
[2018-11-09] VITALS (18 sets, daily range): BP systolic 113–141; BP diastolic 66–85
[2018-11-09] MEDS: HYDROmorphone/NS 1 mg/ml CADD 50 ML IV SCH ×9 (01:00→23:00)
[2018-11-09] MEDS: mineral oil/petrolatum ophthal oint EACHEYE SCH ×3 (02:00→14:00)
[2018-11-09 02:36] LABS: BASOPHILS % (AUTO) 0.4 % (0-1); EOSINOPHILS % (AUTO) 9.1 % (0-6); HEMATOCRIT 26.8 % (35.0-45.0); HEMOGLOBIN 9.2 g/dl (12.0-16.0); LYMPHOCYTES # (AUTO) 1.5 X10'3 (1.1-4.8); LYMPHOCYTES % (AUTO) 13.1 % (21-51); MEAN CORPUSCULAR HEMOGLOBIN 29.7 PG (27.0-31.0); MEAN CORPUSCULAR HGB CONC 34.2 g/dL (33.0-36.5); MEAN CORPUSCULAR VOLUME 86.7 FL (78-98); MONOCYTES # (AUTO) 0.9 X10'3 (0-0.9); MONOCYTES % (AUTO) 8.3 % (2-12); NEUTROPHILS # (AUTO) 7.7 X10'3 (1.8-7.7); NEUTROPHILS % (AUTO) 69.1 % (42-75); PLATELET COUNT 283 X10'3 (140-440); RED BLOOD COUNT 3.09 X10'6 (4.20-5.60); WHITE BLOOD COUNT 11.2 X10'3 (4.5-11.0)
[2018-11-09 02:42] LABS: PARTIAL THROMBOPLASTIN TIME 29 SECONDS (22-32)
[2018-11-09 02:45] LABS: ALANINE AMINOTRANSFERASE 27 U/L (12-78); ALBUMIN 2.5 G/DL (3.4-5.0); ALBUMIN/GLOBULIN RATIO 0.8 (1.1-1.5); ALKALINE PHOSPHATASE 260 IU/L (46-116); ANION GAP 4 (8-16); ASPARTATE AMINO TRANSFERASE 17 U/L (10-37); BILIRUBIN,TOTAL 1.2 MG/DL (0.1-1.0); BLOOD UREA NITROGEN 13 MG/DL (7-18); CALCIUM 8.5 MG/DL (8.5-10.1); CHLORIDE 103 MMOL/L (99-107); CREATININE 0.42 MG/DL (0.40-0.90); GLUCOSE 119 MG/DL (70-104); MAGNESIUM 1.7 MG/DL (1.5-2.4); PHOSPHORUS 2.8 MG/DL (2.3-4.5); POTASSIUM 3.6 MMOL/L (3.5-5.1); SODIUM 136 MMOL/L (135-145); TOTAL CARBON DIOXIDE 28.7 MMOL/L (24-32); TOTAL PROTEIN 5.6 G/DL (6.4-8.2); eGFR > 90 ML/MIN
[2018-11-09] MEDS: ipratropium/albuterol 3ml nebule NEB SCH ×5 (03:00→19:42)
[2018-11-09] MEDS: [UNRECOGNIZED DRUG - REMARK] IV SCH ×2 (03:31)
[2018-11-09] MEDS: insulin regular, human vial - multi-dose SQ SCH ×2 (03:50→20:05)
[2018-11-09] MEDS ORDERED: proCHLORperazine 10 MG/2 ml inj IM ONE (04:00)
--- NOTE | 2018-11-09 06:14 | NUR ---
Problems reprioritized. Patient report given, questions answered & plan of care reviewed with Nathaly CORDERO.
--- NOTE | 2018-11-09 06:30 | NUR ---
Patient in room [facility] 2013. I have received report from Sonali CORDERO and had the opportunity to ask questions and assume patient care. Addendum: 11/09/18 at 0631 by Nathaly Murray RN Amended: Links added.
[2018-11-09 06:43] LABS: UREA NITROGEN 24HR,URINE 10.8 GM/24HR (7-20)
[2018-11-09] MEDS: ESOMEPRAZOLE 40 MG VIAL IV SCH (07:23)
[2018-11-09] MEDS: enoxaparin 40mg/0.4ml syringe SUBCUT SCH (07:23)
[2018-11-09] MEDS: lactobacillus rhamnosus 10,000 MMU CELLS/CAPSULE PO SCH ×2 (07:26→20:00)
[2018-11-09] MEDS: FAT EMULSION IV SCH (07:36)
--- NOTE | 2018-11-09 08:50 | NUR ---
Dr. Barakat in to see pt. States pt. can transfer to Surgical Floor today if ok with Dr. Steve.
--- NOTE | 2018-11-09 09:28 | NUR ---
Pt. ambulated with PT using FWW. Pt. tolerated well. VSS. Pain controlled. No nausea.
--- NOTE | 2018-11-09 10:37 | NUR ---
Pt. constantly asking to bet back into bed. RN instructed pt. on the importance of sitting up in chair. Will assist pt. back to bed after rounds.
--- NOTE | 2018-11-09 11:17 | NUR ---
I have reviewed and agree with all medications administered and interventions performed by [facility] Student(ROSARIO CASTRO
--- NOTE | 2018-11-09 12:10 | NUR ---
Abdominal dressing taken down. Wound assessed. Wound with sutures looks WNL and well approximated with minimal oozing of serosangiounous drainage in a couple areas. Old colostomy opening is packed. RN left packing intact until specific wound orders could be obtained from [facility] RN or Dr. Sumner. Incision covered with non-adherent gauze and an island dressing, secured with tape.
--- NOTE | 2018-11-09 13:20 | NUR ---
PT here to ambulate pt. again. Awaiting room on Surgical Floor for pt.
[2018-11-09] MEDS: ondansetron/PF 4mg/2ml inj IV PRN ×2 (13:49→20:10)
[2018-11-09] MEDS ORDERED: [UNRECOGNIZED DRUG - OTHER] IV SCH (15:00)
[2018-11-09] MEDS ORDERED: TRACE ELEMENT IV SCH (15:00)
[2018-11-09] MEDS ORDERED: CALCIUM IV SCH (15:00)
[2018-11-09] MEDS ORDERED: LYTES IV SCH (15:00)
[2018-11-09] MEDS ORDERED: DEXT IV SCH (15:00)
--- NOTE | 2018-11-09 16:52 | NUR ---
Pt. assigned to room 344A for noc shift. visiting. aware of new room.
--- NOTE | 2018-11-09 18:15 | NUR ---
I have received report from Nathaly CORDERO and had the opportunity to ask questions and assume patient care. Patient is awaiting transfer to room 334A. Pt is awake alert & oriented in good spirits. NGT to low wall suction, drainage is dark green along tubing. Occlusive dressing to right neck no drainage. Right upper arm PICC line with TPN infusing via red port. Purple port is saline locked. CADD pump with Dilaudid. Patient denies pain, medication effective in relieving pain. Abdomen with clean dry dressing. Abdomen is soft, tender & less distended from this morning. Fernandes drains clear sade colored urine. No distress. Stable.
--- NOTE | 2018-11-09 18:15 | NUR ---
Problems reprioritized. Patient report given, questions answered & plan of care reviewed with Sonali CORDERO.
--- NOTE | 2018-11-09 19:50 | NUR ---
Problems reprioritized. Patient report given, questions answered & plan of care reviewed with Maria CORDERO on surgical floor.
[2018-11-09] MEDS: insulin glargine (Lantus) pen - multi-dose SQ SCH (20:02)
--- NOTE | 2018-11-09 20:20 | NUR ---
Patient placed in wheel chair & transported to surgical floor room 334. Stable upon transfer. All belongings taken. T 37.5 HR 86 RR 22 BP 131/80 Accompanied by RN & PLANT ASSIGNER.
--- NOTE | 2018-11-09 20:25 | NUR ---
PATIENT TRANSFERRED TO ROOM 344A FROM CICU. PLACED COMFORTABLE IN BED. VITAL SIGNS TAKEN AND RECORDED.
[2018-11-10] VITALS: BP 131/87
[2018-11-10] MEDS: ipratropium/albuterol 3ml nebule NEB SCH ×7 (00:12→23:00)
[2018-11-10] MEDS: HYDROmorphone/NS 1 mg/ml CADD 50 ML IV SCH ×12 (01:00→23:00)
[2018-11-10] MEDS: insulin regular, human vial - multi-dose SQ SCH ×2 (02:41→20:56)
[2018-11-10] MEDS: [UNRECOGNIZED DRUG - REMARK] IV SCH ×2 (03:29)
[2018-11-10] MEDS: normal saline 1000ml 1,000 ML IV SCH (03:52)
[2018-11-10 05:43] LABS: BASOPHILS # (AUTO) 0.1 X10'3 (0-0.2); BASOPHILS % (AUTO) 0.5 % (0-1); EOSINOPHILS # (AUTO) 1.5 X10'3 (0-0.9); EOSINOPHILS % (AUTO) 15.2 % (0-6); HEMATOCRIT 26.8 % (35.0-45.0); HEMOGLOBIN 9.2 g/dl (12.0-16.0); LYMPHOCYTES # (AUTO) 1.5 X10'3 (1.1-4.8); MEAN CORPUSCULAR HEMOGLOBIN 29.9 PG (27.0-31.0); MEAN CORPUSCULAR HGB CONC 34.3 g/dL (33.0-36.5); MEAN CORPUSCULAR VOLUME 87.1 FL (78-98); MEAN PLATELET VOLUME 8.1 FL (7.4-10.4); MONOCYTES # (AUTO) 0.9 X10'3 (0-0.9); MONOCYTES % (AUTO) 8.5 % (2-12); NEUTROPHILS # (AUTO) 6.2 X10'3 (1.8-7.7); NEUTROPHILS % (AUTO) 60.8 % (42-75); PLATELET COUNT 339 X10'3 (140-440); RED BLOOD COUNT 3.08 X10'6 (4.20-5.60); WHITE BLOOD COUNT 10.1 X10'3 (4.5-11.0)
--- NOTE | 2018-11-10 06:00 | NUR ---
RECEIVED REPORT FROM ANNE RODRÍGUEZ RN
[2018-11-10 06:03] LABS: PARTIAL THROMBOPLASTIN TIME 27 SECONDS (22-32)
[2018-11-10 06:26] LABS: ALANINE AMINOTRANSFERASE 29 U/L (12-78); ALBUMIN 2.3 G/DL (3.4-5.0); ALBUMIN/GLOBULIN RATIO 0.7 (1.1-1.5); ALKALINE PHOSPHATASE 268 IU/L (46-116); ANION GAP 7 (8-16); ASPARTATE AMINO TRANSFERASE 12 U/L (10-37); BILIRUBIN,TOTAL 0.7 MG/DL (0.1-1.0); BLOOD UREA NITROGEN 15 MG/DL (7-18); BUN/CREATININE RATIO 37.5 (6.6-38.0); CALCIUM 8.8 MG/DL (8.5-10.1); CHLORIDE 104 MMOL/L (99-107); GLUCOSE 62 MG/DL (70-104); MAGNESIUM 1.6 MG/DL (1.5-2.4); PHOSPHORUS 3.2 MG/DL (2.3-4.5); SODIUM 139 MMOL/L (135-145); TOTAL CARBON DIOXIDE 28.4 MMOL/L (24-32); TOTAL PROTEIN 5.8 G/DL (6.4-8.2); TRIGLYCERIDES 82 MG/DL (20-135); eGFR > 90 ML/MIN
--- NOTE | 2018-11-10 06:30 | NUR ---
Problems reprioritized. Patient report given, questions answered & plan of care reviewed with ANA CORDERO.
[2018-11-10 07:00] VITALS: BP 124/78
[2018-11-10] MEDS: ESOMEPRAZOLE 40 MG VIAL IV SCH (08:00)
[2018-11-10] MEDS: FAT EMULSION IV SCH (08:57)
[2018-11-10] MEDS: enoxaparin 40mg/0.4ml syringe SUBCUT SCH (08:57)
[2018-11-10] MEDS: lactobacillus rhamnosus 10,000 MMU CELLS/CAPSULE PO SCH ×2 (08:58→20:00)
[2018-11-10] MEDS ORDERED: magnesium Cl slow-release 64mg tablet PO PRN (10:45)
[2018-11-10] MEDS ORDERED: magnesium 2GM in 50ml NS 50 ML IV PRN (10:45)
[2018-11-10] MEDS ORDERED: magnesium 4gm in 100ml NS 100 ML IV PRN (10:45)
[2018-11-10] MEDS ORDERED: potassium Cl 20 mEq SR tablet PO PRN (10:45)
[2018-11-10] MEDS: potassium Cl 20 mEq SR tablet PO PRN ×2 (10:54→17:50)
--- NOTE | 2018-11-10 14:14 | NUR ---
Wound consult: Pt s/p abdominal wound closure 11/07, no longer with wound VAC. Pt has been extubated and transferred to the floors. Pt continues to be NPO with TPN and tolerating at goal. LBM 11/08 with bowel sounds per MD notes. Pending approval from surgeon for PO diet advancement. Current TPN rate providing additional protein for wound healing. Pt will need protein education prior to d/c. Will continue to follow. Recommend: 1. 2:1 TPN using Clinimix E 10/18 to run continuously for 24 hours each day at 60 ml/hr goal will provide total volume of 1440 ml, 72 gm protein, 288 gm dextrose, 1447 total cals, 1159 total non protein calories, and 4.4 mg/kg/min dextrose loading. 2. Separate 90 ml 20% intralipids to run for 12 hours every day to provide 18 grams of lipids and total of 180 cals. 2. prealbumin Q M/, daily wts 3. monitor for TPN tolerance 4. Advance diet as medically indicated to low residue when OK by surgeon 5. Protein education prior to d/c Addendum: 11/10/18 at [address] Amended: Links added.
[2018-11-10] MEDS ORDERED: [UNRECOGNIZED DRUG - OTHER] IV SCH (15:00)
[2018-11-10] MEDS ORDERED: CALCIUM IV SCH (15:00)
[2018-11-10] MEDS ORDERED: DEXT IV SCH (15:00)
[2018-11-10] MEDS ORDERED: TRACE ELEMENT IV SCH (15:00)
[2018-11-10] MEDS ORDERED: LYTES IV SCH (15:00)
--- NOTE | 2018-11-10 18:12 | NUR ---
GAVE REPORT TO ANNE RODRÍGUEZ
--- NOTE | 2018-11-10 18:30 | NUR ---
Patient in room [facility] 344. I have received report from ANA CORDERO and had the opportunity to ask questions and assume patient care.
[2018-11-10 20:00] VITALS: BP 161/94
[2018-11-10] MEDS: potassium CL 10mEq/100ml bag 100 ML IV PRN ×2 (20:06→22:52)
[2018-11-10] MEDS: insulin glargine (Lantus) pen - multi-dose SQ SCH (20:55)
[2018-11-11] VITALS: BP 150/84
[2018-11-11] MEDS: potassium CL 10mEq/100ml bag 100 ML IV PRN ×2 (00:44→02:05)
[2018-11-11] MEDS: HYDROmorphone/NS 1 mg/ml CADD 50 ML IV SCH ×12 (01:00→23:00)
[2018-11-11] MEDS: ipratropium/albuterol 3ml nebule NEB SCH ×4 (03:00→15:00)
[2018-11-11] MEDS ORDERED: [UNRECOGNIZED DRUG - REMARK] IV SCH ×2 (03:00)
[2018-11-11] MEDS: ondansetron/PF 4mg/2ml inj IV PRN ×2 (04:58→10:31)
--- NOTE | 2018-11-11 06:30 | NUR ---
Problems reprioritized. Patient report given, questions answered & plan of care reviewed with TL CORDERO.
--- NOTE | 2018-11-11 06:50 | NUR ---
Patient in room [facility] 344. I have received report from CONSUELO POWER and had the opportunity to ask questions and assume patient care.
[2018-11-11 07:24] LABS: BASOPHILS # (AUTO) 0.1 X10'3 (0-0.2); BASOPHILS % (AUTO) 0.9 % (0-1); EOSINOPHILS # (AUTO) 1.8 X10'3 (0-0.9); EOSINOPHILS % (AUTO) 16.5 % (0-6); LYMPHOCYTES # (AUTO) 1.8 X10'3 (1.1-4.8); LYMPHOCYTES % (AUTO) 16.1 % (21-51); MEAN CORPUSCULAR HEMOGLOBIN 29.7 PG (27.0-31.0); MEAN CORPUSCULAR HGB CONC 34.4 g/dL (33.0-36.5); MEAN CORPUSCULAR VOLUME 86.5 FL (78-98); MEAN PLATELET VOLUME 8.2 FL (7.4-10.4); MONOCYTES # (AUTO) 1.1 X10'3 (0-0.9); MONOCYTES % (AUTO) 9.7 % (2-12); NEUTROPHILS # (AUTO) 6.3 X10'3 (1.8-7.7); NEUTROPHILS % (AUTO) 56.8 % (42-75); PLATELET COUNT 456 X10'3 (140-440); RED BLOOD COUNT 3.35 X10'6 (4.20-5.60); RED CELL DISTRIBUTION WIDTH 14.2 % (11.5-14.5)
[2018-11-11 07:47] LABS: ALANINE AMINOTRANSFERASE 35 U/L (12-78); ALBUMIN 2.7 G/DL (3.4-5.0); ALBUMIN/GLOBULIN RATIO 0.7 (1.1-1.5); ALKALINE PHOSPHATASE 342 IU/L (46-116); ANION GAP 5 (8-16); ASPARTATE AMINO TRANSFERASE 20 U/L (10-37); BILIRUBIN,TOTAL 0.8 MG/DL (0.1-1.0); BLOOD UREA NITROGEN 17 MG/DL (7-18); BUN/CREATININE RATIO 31.5 (6.6-38.0); CALCIUM 9.2 MG/DL (8.5-10.1); CHLORIDE 104 MMOL/L (99-107); CREATININE 0.54 MG/DL (0.40-0.90); GLUCOSE 128 MG/DL (70-104); MAGNESIUM 1.7 MG/DL (1.5-2.4); PHOSPHORUS 4.4 MG/DL (2.3-4.5); POTASSIUM 3.7 MMOL/L (3.5-5.1); PREALBUMIN 19.8 MG/DL (19-36); SODIUM 138 MMOL/L (135-145); TOTAL CARBON DIOXIDE 29.1 MMOL/L (24-32); TOTAL PROTEIN 6.6 G/DL (6.4-8.2); eGFR > 90 ML/MIN
[2018-11-11 08:00] VITALS: BP 135/69
[2018-11-11] MEDS: lactobacillus rhamnosus 10,000 MMU CELLS/CAPSULE PO SCH ×2 (08:00→20:00)
[2018-11-11] MEDS: enoxaparin 40mg/0.4ml syringe SUBCUT SCH (08:53)
[2018-11-11] MEDS: ESOMEPRAZOLE 40 MG VIAL IV SCH (08:53)
[2018-11-11] MEDS: FAT EMULSION IV SCH (08:53)
--- NOTE | 2018-11-11 09:00 | NUR ---
Patient refuses insulin coverage for BG of 140. Patient is on TPN and level 2 of protocol. Patient educated on TPN and insulin coverage and she states, "I understand. They told me yesterday." Patient still refusing but states she will consider having insulin if her BG is above 160.
[2018-11-11 09:13] LABS: PARTIAL THROMBOPLASTIN TIME 26 SECONDS (22-32)
[2018-11-11 12:29] VITALS: BP 149/95
--- NOTE | 2018-11-11 13:34 | NUR ---
YAMILE clamped per Dr. Saenz.
[2018-11-11] MEDS ORDERED: metoclopramide 5 mg/ml inj IV PRN (13:35)
[2018-11-11] MEDS: TRACE ELEMENT IV SCH (15:30)
[2018-11-11] MEDS: LYTES IV SCH (15:30)
[2018-11-11] MEDS: [UNRECOGNIZED DRUG - OTHER] IV SCH (15:30)
[2018-11-11] MEDS: CALCIUM IV SCH (15:30)
[2018-11-11] MEDS: DEXT IV SCH (15:30)
--- NOTE | 2018-11-11 15:48 | NUR ---
Reassessment: Pt continues with TPN at goal rate and tolerating. Per MD notes some liquids may be allowed however care should be taken to avoid early feedings. Pt seen at bedside with ice chips. Pt endorses a good appetite, denies any food allergies, and reports no GI discomfort just that she is hungry. RD informed pt that likely her diet will be advanced slowly per MD to monitor for tolerance. Pt reports some difficulty chewing meat and requests chopped meat once her diet is advanced to solid food. Pt provided with written and verbal protein education and RD contact information. LB 11/11. Will continue to follow. Recommend: 1. 2:1 TPN using Clinimix E 10/18 to run continuously for 24 hours each day at 60 ml/hr goal will provide total volume of 1440 ml, 72 gm protein, 288 gm dextrose, 1447 total cals, 1159 total non protein calories, and 4.4 mg/kg/min dextrose loading. 2. Separate 90 ml 20% intralipids to run for 12 hours every day to provide 18 grams of lipids and total of 180 cals. 2. prealbumin Q /, daily wts 3. monitor for TPN tolerance 4. Advance diet as medically indicated to low residue when OK by surgeon 5. Chopped meat once PO diet advances to solid food Addendum: 11/11/18 at [address] Amended: Links added.
[2018-11-11] MEDS ORDERED: albuterol 2.5 MG/3 ML nebule NEB PRN (16:10)
--- NOTE | 2018-11-11 18:37 | NUR ---
Problems reprioritized. Patient report given, questions answered & plan of care reviewed with CONSUELO Ceja.
--- NOTE | 2018-11-11 18:40 | NUR ---
Patient in room [facility] 344. I have received report from TL CORDERO and had the opportunity to ask questions and assume patient care.
[2018-11-11 19:56] VITALS: BP 139/83
[2018-11-11] MEDS: insulin glargine (Lantus) pen - multi-dose SQ SCH (21:00)
[2018-11-12] VITALS: BP 136/83
[2018-11-12] MEDS: HYDROmorphone/NS 1 mg/ml CADD 50 ML IV SCH ×6 (01:00→11:00)
[2018-11-12] MEDS: normal saline 1000ml 1,000 ML IV SCH (03:37)
[2018-11-12] MEDS: [UNRECOGNIZED DRUG - REMARK] IV SCH ×2 (03:40)
--- NOTE | 2018-11-12 06:25 | NUR ---
Problems reprioritized. Patient report given, questions answered & plan of care reviewed with TL CORDERO.
[2018-11-12 06:26] LABS: BASOPHILS # (AUTO) 0.1 X10'3 (0-0.2); BASOPHILS % (AUTO) 0.8 % (0-1); EOSINOPHILS # (AUTO) 1.7 X10'3 (0-0.9); EOSINOPHILS % (AUTO) 14.8 % (0-6); HEMATOCRIT 29.3 % (35.0-45.0); LYMPHOCYTES # (AUTO) 1.8 X10'3 (1.1-4.8); LYMPHOCYTES % (AUTO) 15.4 % (21-51); MEAN CORPUSCULAR HGB CONC 34.2 g/dL (33.0-36.5); MEAN CORPUSCULAR VOLUME 87.9 FL (78-98); MEAN PLATELET VOLUME 8.1 FL (7.4-10.4); MONOCYTES % (AUTO) 8.5 % (2-12); NEUTROPHILS % (AUTO) 60.5 % (42-75); PLATELET COUNT 483 X10'3 (140-440); RED BLOOD COUNT 3.34 X10'6 (4.20-5.60); RED CELL DISTRIBUTION WIDTH 14.5 % (11.5-14.5); WHITE BLOOD COUNT 11.6 X10'3 (4.5-11.0)
--- NOTE | 2018-11-12 06:27 | NUR ---
Patient in room [facility] 344. I have received report from CONSUELO POWER and had the opportunity to ask questions and assume patient care.
[2018-11-12 06:33] LABS: ALANINE AMINOTRANSFERASE 44 U/L (12-78); ALBUMIN 2.7 G/DL (3.4-5.0); ALBUMIN/GLOBULIN RATIO 0.7 (1.1-1.5); ALKALINE PHOSPHATASE 397 IU/L (46-116); ANION GAP 10 (8-16); ASPARTATE AMINO TRANSFERASE 24 U/L (10-37); BLOOD UREA NITROGEN 24 MG/DL (7-18); BUN/CREATININE RATIO 42.1 (6.6-38.0); CALCIUM 9.1 MG/DL (8.5-10.1); CHLORIDE 104 MMOL/L (99-107); CREATININE 0.57 MG/DL (0.40-0.90); GLUCOSE 130 MG/DL (70-104); MAGNESIUM 1.6 MG/DL (1.5-2.4); PHOSPHORUS 2.5 MG/DL (2.3-4.5); POTASSIUM 3.4 MMOL/L (3.5-5.1); SODIUM 139 MMOL/L (135-145); TOTAL CARBON DIOXIDE 25.2 MMOL/L (24-32); TOTAL PROTEIN 6.7 G/DL (6.4-8.2); eGFR > 90 ML/MIN
[2018-11-12 06:38] LABS: PARTIAL THROMBOPLASTIN TIME 27 SECONDS (22-32)
[2018-11-12 07:00] VITALS: BP 114/78
[2018-11-12] MEDS: lactobacillus rhamnosus 10,000 MMU CELLS/CAPSULE PO SCH ×2 (08:00→20:08)
[2018-11-12] MEDS: ESOMEPRAZOLE 40 MG VIAL IV SCH (08:07)
[2018-11-12] MEDS: metoclopramide 5 mg/ml inj IV SCH ×3 (08:07→20:04)
[2018-11-12] MEDS: enoxaparin 40mg/0.4ml syringe SUBCUT SCH (08:11)
[2018-11-12] MEDS: FAT EMULSION IV SCH (09:07)
[2018-11-12 12:14] VITALS: BP 117/78
[2018-11-12] MEDS ORDERED: HYDROcodone/acetaminophen 10/325mg tab PO PRN ×2 (12:45)
[2018-11-12] MEDS: oxyCODONE/APAP 5-325mg tablet PO PRN ×2 (15:33→20:17)
[2018-11-12] MEDS: potassium Cl 20 mEq SR tablet PO PRN ×2 (15:33→20:08)
[2018-11-12] MEDS: DEXT IV SCH (15:34)
[2018-11-12] MEDS: TRACE ELEMENT IV SCH (15:34)
[2018-11-12] MEDS: CALCIUM IV SCH (15:34)
[2018-11-12] MEDS: [UNRECOGNIZED DRUG - OTHER] IV SCH (15:34)
[2018-11-12] MEDS: LYTES IV SCH (15:34)
--- NOTE | 2018-11-12 18:11 | NUR ---
Problems reprioritized. Patient report given, questions answered & plan of care reviewed with CONSUELO Ceja.
--- NOTE | 2018-11-12 18:30 | NUR ---
Patient in room [facility] 344. I have received report from TL CORDERO and had the opportunity to ask questions and assume patient care.
[2018-11-12 20:00] VITALS: BP 153/92
[2018-11-12] MEDS: insulin glargine (Lantus) pen - multi-dose SQ SCH (20:21)
[2018-11-13] VITALS: BP 126/76
[2018-11-13] MEDS: oxyCODONE/APAP 5-325mg tablet PO PRN ×5 (01:14→21:01)
[2018-11-13] MEDS: metoclopramide 5 mg/ml inj IV SCH ×4 (01:20→21:01)
[2018-11-13] MEDS: [UNRECOGNIZED DRUG - REMARK] IV SCH ×2 (03:09)
--- NOTE | 2018-11-13 06:30 | NUR ---
Patient in room [facility] 340. I have received report from Latricia CORDERO and had the opportunity to ask questions and assume patient care.
--- NOTE | 2018-11-13 06:30 | NUR ---
Problems reprioritized. Patient report given, questions answered & plan of care reviewed with SHAUN CORDERO.
[2018-11-13 06:40] LABS: ALANINE AMINOTRANSFERASE 47 U/L (12-78); ALBUMIN 2.7 G/DL (3.4-5.0); ALBUMIN/GLOBULIN RATIO 0.8 (1.1-1.5); ALKALINE PHOSPHATASE 332 IU/L (46-116); ANION GAP 4 (8-16); ASPARTATE AMINO TRANSFERASE 25 U/L (10-37); BILIRUBIN,TOTAL 0.8 MG/DL (0.1-1.0); BLOOD UREA NITROGEN 19 MG/DL (7-18); BUN/CREATININE RATIO 35.8 (6.6-38.0); CALCIUM 8.8 MG/DL (8.5-10.1); CHLORIDE 104 MMOL/L (99-107); CREATININE 0.53 MG/DL (0.40-0.90); GLUCOSE 126 MG/DL (70-104); MAGNESIUM 1.6 MG/DL (1.5-2.4); PARTIAL THROMBOPLASTIN TIME 29 SECONDS (22-32); PHOSPHORUS 3.4 MG/DL (2.3-4.5); POTASSIUM 3.8 MMOL/L (3.5-5.1); SODIUM 136 MMOL/L (135-145); TOTAL CARBON DIOXIDE 28.1 MMOL/L (24-32); TOTAL PROTEIN 6.1 G/DL (6.4-8.2); eGFR > 90 ML/MIN
[2018-11-13 06:54] LABS: BASOPHILS # (AUTO) 0.1 X10'3 (0-0.2); BASOPHILS % (AUTO) 0.6 % (0-1); EOSINOPHILS # (AUTO) 1.8 X10'3 (0-0.9); EOSINOPHILS % (AUTO) 18.1 % (0-6); HEMATOCRIT 26.5 % (35.0-45.0); HEMOGLOBIN 8.9 g/dl (12.0-16.0); LYMPHOCYTES # (AUTO) 1.9 X10'3 (1.1-4.8); LYMPHOCYTES % (AUTO) 19.5 % (21-51); MEAN CORPUSCULAR HEMOGLOBIN 29.7 PG (27.0-31.0); MEAN CORPUSCULAR HGB CONC 33.7 g/dL (33.0-36.5); MEAN CORPUSCULAR VOLUME 88.2 FL (78-98); MEAN PLATELET VOLUME 8.5 FL (7.4-10.4); MONOCYTES # (AUTO) 0.9 X10'3 (0-0.9); MONOCYTES % (AUTO) 8.7 % (2-12); NEUTROPHILS # (AUTO) 5.3 X10'3 (1.8-7.7); NEUTROPHILS % (AUTO) 53.1 % (42-75); PLATELET COUNT 454 X10'3 (140-440); RED BLOOD COUNT 3.01 X10'6 (4.20-5.60); RED CELL DISTRIBUTION WIDTH 14.5 % (11.5-14.5)
[2018-11-13 07:00] VITALS: BP 121/73
[2018-11-13] MEDS: lactobacillus rhamnosus 10,000 MMU CELLS/CAPSULE PO SCH ×2 (08:05→21:01)
[2018-11-13] MEDS: FAT EMULSION IV SCH (08:06)
[2018-11-13] MEDS: enoxaparin 40mg/0.4ml syringe SUBCUT SCH (08:06)
[2018-11-13] MEDS: ESOMEPRAZOLE 40 MG VIAL IV SCH (09:25)
[2018-11-13 11:00] VITALS: BP 142/83
--- NOTE | 2018-11-13 13:53 | NUR ---
Notified pharmacist Odalis regarding Dr. Saenz order to start weaning TPN as we are advancing patient's diet. Blood sugar checked 89 mg/dl. Odalis said that we can stop the TPN at this time
--- NOTE | 2018-11-13 18:30 | NUR ---
Problems reprioritized. Patient report given, questions answered & plan of care reviewed with Latricia CORDERO.
--- NOTE | 2018-11-13 18:32 | NUR ---
Patient in room [facility]. I have received report from SHAUN CORDERO and had the opportunity to ask questions and assume patient care.
[2018-11-13 20:00] VITALS: BP 132/84
[2018-11-13] MEDS: insulin glargine (Lantus) pen - multi-dose SQ SCH (21:00)
[2018-11-14] VITALS: BP 123/73
[2018-11-14] MEDS: oxyCODONE/APAP 5-325mg tablet PO PRN ×4 (01:33→20:38)
[2018-11-14] MEDS: metoclopramide 5 mg/ml inj IV SCH ×4 (01:33→20:38)
[2018-11-14 05:44] LABS: ALANINE AMINOTRANSFERASE 61 U/L (12-78); ALBUMIN 2.8 G/DL (3.4-5.0); ALBUMIN/GLOBULIN RATIO 0.8 (1.1-1.5); ALKALINE PHOSPHATASE 312 IU/L (46-116); ANION GAP 5 (8-16); ASPARTATE AMINO TRANSFERASE 36 U/L (10-37); BILIRUBIN,TOTAL 0.7 MG/DL (0.1-1.0); BLOOD UREA NITROGEN 12 MG/DL (7-18); BUN/CREATININE RATIO 17.6 (6.6-38.0); CALCIUM 9.2 MG/DL (8.5-10.1); CHLORIDE 105 MMOL/L (99-107); CREATININE 0.68 MG/DL (0.40-0.90); GLUCOSE 77 MG/DL (70-104); MAGNESIUM 1.6 MG/DL (1.5-2.4); PHOSPHORUS 4.3 MG/DL (2.3-4.5); POTASSIUM 4.1 MMOL/L (3.5-5.1); SODIUM 137 MMOL/L (135-145); TOTAL CARBON DIOXIDE 26.7 MMOL/L (24-32); TOTAL PROTEIN 6.4 G/DL (6.4-8.2); eGFR 89 ML/MIN
[2018-11-14 05:45] LABS: BASOPHILS # (AUTO) 0.1 X10'3 (0-0.2); EOSINOPHILS # (AUTO) 1.8 X10'3 (0-0.9); EOSINOPHILS % (AUTO) 20.5 % (0-6); HEMOGLOBIN 9.3 g/dl (12.0-16.0); LYMPHOCYTES # (AUTO) 2.4 X10'3 (1.1-4.8); LYMPHOCYTES % (AUTO) 27.1 % (21-51); MEAN CORPUSCULAR HEMOGLOBIN 30.2 PG (27.0-31.0); MEAN CORPUSCULAR HGB CONC 34.5 g/dL (33.0-36.5); MEAN CORPUSCULAR VOLUME 87.5 FL (78-98); MEAN PLATELET VOLUME 8.2 FL (7.4-10.4); MONOCYTES # (AUTO) 0.8 X10'3 (0-0.9); MONOCYTES % (AUTO) 9.5 % (2-12); NEUTROPHILS # (AUTO) 3.7 X10'3 (1.8-7.7); NEUTROPHILS % (AUTO) 41.9 % (42-75); PLATELET COUNT 502 X10'3 (140-440); RED BLOOD COUNT 3.08 X10'6 (4.20-5.60); RED CELL DISTRIBUTION WIDTH 14.8 % (11.5-14.5); WHITE BLOOD COUNT 8.8 X10'3 (4.5-11.0)
[2018-11-14 05:54] LABS: PARTIAL THROMBOPLASTIN TIME 27 SECONDS (22-32)
--- NOTE | 2018-11-14 06:30 | NUR ---
Problems reprioritized. Patient report given, questions answered & plan of care reviewed with SKYLAR RN.
[2018-11-14 07:00] VITALS: BP 125/72
--- NOTE | 2018-11-14 07:22 | NUR ---
Patient in room [facility]. I have received report from TONO CORDERO and had the opportunity to ask questions and assume patient care.
[2018-11-14] MEDS: ESOMEPRAZOLE 40 MG VIAL IV SCH (07:58)
[2018-11-14] MEDS: lactobacillus rhamnosus 10,000 MMU CELLS/CAPSULE PO SCH ×2 (07:58→20:37)
[2018-11-14] MEDS: enoxaparin 40mg/0.4ml syringe SUBCUT SCH (07:59)
[2018-11-14 11:00] VITALS: BP 123/90
--- NOTE | 2018-11-14 15:23 | NUR ---
Reassessment: Pt TPN d/c and advanced to regular diet PO 25% avg meals. LBM 11/12. Ensure Enlive TIDWM added for additional protein/kcal needs; MD notified. Will continue to monitor. Recommend: 1. continue regular diet per MD; chopped meats 2. ensure enlive TIDWM 3. wt per rx Addendum: 11/14/18 at [address] Amended: Links added.
--- NOTE | 2018-11-14 18:30 | NUR ---
Problems reprioritized. Patient report given, questions answered & plan of care reviewed with Pat RN.
[2018-11-14 19:30] VITALS: BP 132/76
[2018-11-14] MEDS: insulin glargine (Lantus) pen - multi-dose SQ SCH (21:00)
[2018-11-14 23:30] VITALS: BP 126/81
[2018-11-15] MEDS: oxyCODONE/APAP 5-325mg tablet PO PRN ×2 (01:57→08:44)
[2018-11-15] MEDS: metoclopramide 5 mg/ml inj IV SCH ×2 (01:57→08:44)
--- NOTE | 2018-11-15 06:57 | NUR ---
Patient in room [facility]. I have received report from CONSUELO Murillo and had the opportunity to ask questions and assume patient care.
[2018-11-15 07:00] VITALS: BP 123/82
[2018-11-15] MEDS: ESOMEPRAZOLE 40 MG VIAL IV SCH (08:43)
[2018-11-15] MEDS: lactobacillus rhamnosus 10,000 MMU CELLS/CAPSULE PO SCH (08:44)
[2018-11-15] MEDS: enoxaparin 40mg/0.4ml syringe SUBCUT SCH (08:44)
[2018-11-15] MEDS ORDERED: PER5325T PO (10:09)
[2018-11-15 11:00] VITALS: BP 127/79
--- NOTE | 2018-11-15 12:08 | NUR ---
Pt discharged per nursing, paperwork reviewed and signed. PIV and PICC line, DC'd, cannulas intact. PICC line incision cleaned with antibacterial swab and covered with sterile 2x2 gauze and tegaderm. Pt instructed to watch for signs of infection and follow up with Dr Steve in 1 week, office number provided. Pt being discharged with home health to continue with wound care. Pt refused to have dressing changed prior to discharge today. New prescription delivered by [facility].
== END 2018-11-15 12:18 | disposition home or self-care (01) | DRG 227 ==
LOC: CICU 2S 22:19 → SUR 3N 11-09 20:30
PROVIDERS: ADMIT Internal Medicine Critical Care Medicine; ATTEND Family Medicine
PROC: 0BH17EZ Insertion of Endotracheal Airway into Trachea, Via Natural or Artificial Opening (ICD-10-PCS; 2018-11-02)
PROC: 5A1955Z Respiratory Ventilation, Greater than 96 Consecutive Hours (ICD-10-PCS; 2018-11-02)
PROC: 02HV33Z Insertion of Infusion Device into Superior Vena Cava, Percutaneous Approach (ICD-10-PCS; 2018-11-03)
PROC: B548ZZA Ultrasonography of Superior Vena Cava, Guidance (ICD-10-PCS; 2018-11-03)
PROC: 0DNU0ZZ Release Omentum, Open Approach (ICD-10-PCS; 2018-11-03)
PROC: 0DNM0ZZ Release Descending Colon, Open Approach (ICD-10-PCS; 2018-11-03)
PROC: 0DNA0ZZ Release Jejunum, Open Approach (ICD-10-PCS; 2018-11-03)
PROC: 03HY32Z Insertion of Monitoring Device into Upper Artery, Percutaneous Approach (ICD-10-PCS; 2018-11-03)
PROC: 30233N1 Transfusion of Nonautologous Red Blood Cells into Peripheral Vein, Percutaneous Approach (ICD-10-PCS; 2018-11-05)
PROC: 0WQF0ZZ Repair Abdominal Wall, Open Approach (ICD-10-PCS; principal; 2018-11-07 15:50)
DX: K91.30 Postprocedural intestinal obstruction, unspecified as to partial versus complete (principal); J96.00 Acute respiratory failure, unspecified whether with hypoxia or hypercapnia; E43 Unspecified severe protein-calorie malnutrition; M32.9 Systemic lupus erythematosus, unspecified; F12.90 Cannabis use, unspecified, uncomplicated; Y83.8 Other surgical procedures as the cause of abnormal reaction of the patient, or of later complication, without mention of misadventure at the time of the procedure; F17.210 Nicotine dependence, cigarettes, uncomplicated; I10 Essential (primary) hypertension; Z68.1 Body mass index [BMI] 19.9 or less, adult; Z88.2 Allergy status to sulfonamides; Z90.49 Acquired absence of other specified parts of digestive tract; Z90.710 Acquired absence of both cervix and uterus; Z98.891 History of uterine scar from previous surgery; Z90.722 Acquired absence of ovaries, bilateral; Z98.49 Cataract extraction status, unspecified eye; Z79.899 Other long term (current) drug therapy; Y92.89 Other specified places as the place of occurrence of the external cause
CPT/HCPCS: 36415; 36600; 71045; 74018; 80048; 80053; 81003; 82803; 82948; 83605; 83735; 84100; 84134; 84145; 84478; 84560; 85018; 85025; 85027; 85610; 85730; 86885; 86900; 86901; 86920; 87040; 87070; 94002; 94003; 94640; 94760; 97110; 97116; 97530; A6449; A7000; G0378; J0290; J0780; J1170; J1650; J1815; J1940; J2250; J2405; J2543; J2704; J2765; J3010; J3475; J3480; J3490; J7030; J7120; P9016; P9045; P9047

== ENCOUNTER 2024-04-13 06:24 | Day surgery (SDC) | payer MEDICARE, MEDICAID ==
[2024-04-07 15:00] LABS: BASOPHILS # (AUTO) 0.1 X10'3 (0-0.2); BASOPHILS % (AUTO) 1.1 % (0-1); EOSINOPHILS # (AUTO) 0.2 X10'3 (0-0.9); EOSINOPHILS % (AUTO) 2.6 % (0-6); LYMPHOCYTES # (AUTO) 2.8 X10'3 (1.1-4.8); LYMPHOCYTES % (AUTO) 35.6 % (21-51); MEAN CORPUSCULAR HEMOGLOBIN 30.3 PG (27.0-31.0); MEAN CORPUSCULAR HGB CONC 33.6 g/dL (33.0-36.5); MEAN CORPUSCULAR VOLUME 90.1 FL (78-98); MONOCYTES # (AUTO) 0.5 X10'3 (0-0.9); MONOCYTES % (AUTO) 6.2 % (2-12); NEUTROPHILS # (AUTO) 4.2 X10'3 (1.8-7.7); NEUTROPHILS % (AUTO) 54.5 % (42-75); PRE OP HEMATOCRIT 43.2 % (35.0-45.0); PRE OP HEMOGLOBIN 14.5 g/dL (12.0-16.0); PRE OP PLATELET COUNT 226 X10'3 (140-440); PRE OP WHITE BLOOD COUNT 7.7 10'3 (4.8-10.8); RED CELL DISTRIBUTION WIDTH 14.6 % (11.5-14.5)
[2024-04-07 15:07] LABS: BILIRUBIN,URINE NEGATIVE (Neg); CLARITY,URINE CLEAR (Clear); COLOR,URINE YELLOW (Yellow); GLUCOSE, URINE NEGATIVE (Neg); KETONES,URINE NEGATIVE (Neg); LEUKOCYTE ESTERASE ,URINE NEGATIVE (Neg); OCCULT BLOOD,URINE NEGATIVE (Neg); PROTEIN,URINE NEGATIVE (Neg); UROBILINOGEN,URINE 0.2 E.U/dL (0.2-1.0)
[2024-04-07 15:14] LABS: UA COLLECTION TYPE CLN CATCH MIDSTREAM
[2024-04-07 15:15] LABS: NITRITES, URINE NEGATIVE (Neg)
[2024-04-07 15:17] LABS: ALBUMIN 3.6 G/DL (3.4-5.0); ALBUMIN/GLOBULIN RATIO 1.1 (1.1-1.5); ALKALINE PHOSPHATASE 100 IU/L (46-116); BLOOD UREA NITROGEN 12 MG/DL (7-18); CALCIUM 8.8 MG/DL (8.5-10.1); CHLORIDE 106 MMOL/L (99-107); CREATININE 0.63 MG/DL (0.40-0.90); PRE OP ALT 24 U/L (30-65); PRE OP ANION GAP 5 (8-16); PRE OP AST 28 U/L (10-37); PRE OP BILIRUB, TOTAL 0.3 MG/DL (0.0-1.0); PRE OP GLUCOSE 98 MG/DL (70-104); PRE OP POTASSIUM 3.8 MMOL/L (3.4-5.1); PRE OP SODIUM 144 MMOL/L (135-145); TOTAL CARBON DIOXIDE 33.2 MMOL/L (24-32); TOTAL PROTEIN 6.8 G/DL (6.4-8.2); eGFR > 90 ML/MIN
[2024-04-07 15:22] LABS: PRE OP PROTIME 10.2 SECONDS (9.0-12.0)
[~2024-04-13] VITALS: Ht 149.9 cm; Wt 37.8 kg
[2024-04-13] VITALS (14 sets, daily range): BP systolic 94–171; BP diastolic 54–125; PULSE 18–109; RESP 15–33; TEMP 97.7; O2SAT 94–100
[2024-04-13] MEDS: ceFAZolin 2gm in dextrose, iso 50 ML IV ONE (05:30)
[~2024-04-13 06:24] MED LIST changes: +ACYC-1 PO; +CALCIUM; +GLYC10.7 INH; +KEN0.1O TP; +LISI20TA28 PO; +OMEP20TA23 PO; +VITAMIN D; +albuterol 2.5 MG/3 ML nebule NEB ONE; -sevoflurane 250ml liquid IH ONE
[2024-04-13] MEDS: ringers solution, lacted 1,000 ML IV SCH (07:00)
[2024-04-13] MEDS: famotidine 20mg tablet PO ONE (07:00)
[2024-04-13] MEDS: VANCOMYCIN 1GM 200ML H20 (PEG) 200 ML IV ONE (07:02)
[2024-04-13] MEDS ORDERED: bacitracin 15gm ointment TP ONE (07:40)
[2024-04-13] MEDS ORDERED: BUPIVAcaine 2.5mg/ml inj 50ml vial (contains preservative) ONE (07:41)
[2024-04-13] MEDS ORDERED: ROPIVAcaine 0.5% (5mg/ml) 30ml vial ONE (08:47)
[2024-04-13] MEDS ORDERED: fentaNYL/PF 50MCG/1 ML 2ML syringe ONE (08:48)
[2024-04-13] MEDS ORDERED: midazolam 1 mg/ML 2ml injection ONE (08:49)
[2024-04-13] MEDS ORDERED: ringers solution, lacted 1,000 ML IV SCH (11:00)
[2024-04-13] MEDS ORDERED: proCHLORperazine 10 MG/2 ml inj IV PRN (11:00)
[2024-04-13] MEDS ORDERED: morphine 4 MG/ML inj SYRINge IV PRN (11:00)
[2024-04-13] MEDS ORDERED: meperidine/PF 25mg/ml syringe IV PRN (11:00)
[2024-04-13] MEDS ORDERED: ondansetron/PF 4mg/2ml inj IV PRN (11:00)
[2024-04-13] MEDS ORDERED: labetalol 20mg/4ml (5mg/ml) syringe IV PRN (11:00)
[2024-04-13] MEDS ORDERED: enalaprilat dihydrate 2.5mg/2ml vial IV PRN (11:00)
[2024-04-13] MEDS ORDERED: morphine 2 MG/ML inj. syringe IV PRN (11:00)
[2024-04-13] MEDS: meperidine/PF 25mg/ml syringe IV PRN ×2 (11:09→12:30)
[2024-04-13] MEDS: acetaminophen 1,000mg/100ml IV 100 ML IV ONE (11:34)
== END 2024-04-13 13:05 | disposition home or self-care (01) ==
LOC: PAS 06:24
PROVIDERS: ATTEND Podiatrist Foot & Ankle Surgery
DX: M20.11 Hallux valgus (acquired), right foot (principal); I10 Essential (primary) hypertension; J44.9 Chronic obstructive pulmonary disease, unspecified; K21.9 Gastro-esophageal reflux disease without esophagitis; M81.0 Age-related osteoporosis without current pathological fracture; I25.2 Old myocardial infarction; Z79.899 Other long term (current) drug therapy; Z98.891 History of uterine scar from previous surgery; Z98.890 Other specified postprocedural states; Z88.2 Allergy status to sulfonamides
CPT/HCPCS: 28299; 36415; 71046; 73620; 80053; 81003; 82948; 85025; 85610; 85730; 93005; A4618; A6253; A6402; A6446; A6449; A6455; A7000; C1713; J0131; J0690; J1885; J2175; J2250; J2405; J2795; J3010; J3372; J3490; J7030; J7120; Z7506; Z7508; Z7512; Z7610; 76000

== ENCOUNTER 2024-12-20 08:55 | Day surgery (SDC) | payer MEDICARE, MEDICAID ==
--- NOTE | 2024-12-14 14:10 | ELECTROCARDIOGRAPH REPORT ---
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 SULEMA Perrin Measurements Intervals [place] Rate: 56 P: 79 [place]: 146 QRS: 75 QRSD: 79 T: 75 QT: 420 QTc: 406 Interpretive Statements Sinus bradycardia Nonspecific T abnrm, anterolateral leads Electronically Signed On 12-14-2024 19:51:[address] SULEMA Perrin Please click the below link to view image of tracing.
[2024-12-14 14:15] LABS: MEAN PLATELET VOLUME 8.3 FL (7.4-10.4); PRE OP HEMATOCRIT 44.5 % (35.0-45.0); PRE OP HEMOGLOBIN 14.9 g/dL (12.0-16.0); PRE OP PLATELET COUNT 210 X10'3 (140-440); PRE OP WHITE BLOOD COUNT 8.1 10'3 (4.8-10.8); RED CELL DISTRIBUTION WIDTH 13.4 % (11.5-14.5)
[2024-12-14 14:35] LABS: PRE OP INR 1.0 INR; PRE OP PARTIAL THROMB. TIME 30.0 SECONDS (22-32); PRE OP PROTIME 10.3 SECONDS (9.0-12.0)
[2024-12-14 14:39] LABS: CREATININE 0.75 MG/DL (0.40-0.90); PRE OP ALT 29 U/L (30-65); PRE OP ANION GAP 6 (8-16); PRE OP AST 24 U/L (10-37); PRE OP BILIRUB, TOTAL 0.3 MG/DL (0.0-1.0); PRE OP GLUCOSE 85 MG/DL (70-104); PRE OP POTASSIUM 3.7 MMOL/L (3.4-5.1); PRE OP SODIUM 139 MMOL/L (135-145); TOTAL CARBON DIOXIDE 29.1 MMOL/L (24-32); eGFR 78 ML/MIN
--- NOTE | 2024-12-14 15:06 | RADIOLOGY REPORT ---
EXAM: DI CHEST,TWO VIEWS CLINICAL HISTORY: Pain COMPARISON: DI CHEST,TWO VIEWS on DOS: 04/07/24 TECHNIQUE: Frontal and lateral view of the chest was obtained FINDINGS: Lines and Tubes: None Lungs: No focal consolidation. Pleura: No effusion. No pneumothorax. Cardiomediastinal contours: Unremarkable. Atherosclerotic vascular calcifications of the thoracic ao rta are noted. Bones: No acute osseous abnormality. IMPRESSION: No acute cardiopulmonary disease.
[2024-12-20] VITALS (9 sets, daily range): BP systolic 111–168; BP diastolic 73–97; PULSE 62–71; RESP 12–18; TEMP 97.4; O2SAT 97–100
[~2024-12-20] VITALS: Ht 149.9 cm; Wt 40.0 kg
[~2024-12-20 08:55] MED LIST changes: -CALCIUM; +CALCIUM PO; -KEN0.1O TP; -VITAMIN D; +[UNRECOGNIZED DRUG - OTHER] PO; -albuterol 2.5 MG/3 ML nebule NEB ONE
[2024-12-20] MEDS: ringers solution, lacted 1,000 ML IV SCH (10:05)
[2024-12-20] MEDS: ceFAZolin 2gm/dext,iso 50mL 50 ML IV ONE (10:06)
[2024-12-20] MEDS ORDERED: BUPIVAcaine 0.5% inj/PF 0 ML ONE (11:40)
[2024-12-20] MEDS ORDERED: LIDOcaine 1% W/epiNEPHrine 1:100,000 20ml vial ONE (11:40)
[2024-12-20] MEDS ORDERED: fentaNYL/PF 50MCG/1 ML 2ML syringe ONE (11:41)
[2024-12-20] MEDS ORDERED: midazolam 1 mg/ML 2ml injection ONE (11:41)
[2024-12-20] MEDS ORDERED: ROPIVAcaine 0.5% (5mg/ml) 30ml vial ONE (12:13)
[2024-12-20] MEDS ORDERED: propofol inj 20 ML IV ONE (12:13)
[2024-12-20] MEDS ORDERED: ondansetron/PF 4mg/2ml inj IV PRN (12:35)
[2024-12-20] MEDS ORDERED: ringers solution, lacted 1,000 ML IV SCH (12:35)
[2024-12-20] MEDS ORDERED: meperidine/PF 25mg/ml syringe IV PRN ×3 (12:35)
[2024-12-20] MEDS ORDERED: morphine 4 MG/ML inj SYRINge IV PRN (12:35)
[2024-12-20] MEDS ORDERED: labetalol 20mg/4ml (5mg/ml) syringe IV PRN (12:35)
--- NOTE | 2024-12-20 12:37 | ANESTHESIA RECORDS ---
Nerve Block Providers to [facility] Diagnosis: Nerve Block requested by: LINDA GOSS DPM Neuraxial/Peripheral Nerve Block requested for Post-operative analgesia by Physician above DIAGNOSIS: Post-operative pain. (Body Area) Shoulder: [ ] Arm: [ ] Hand: [ ] Hip: [ ] Knee: [ ] Ankle: [ ] Foot: [ Right ] Leg: [ ] Abdomen: [ ] Other: [ ] Post-operative pain expected to be/is inadequately managed by oral or IV medicines. Regional anesthetic expected to facilitate rehabilitation and/or discharge from facility. Other:[ ] Procedure Performed: Ankle Posterior tibial: Right Ankle Superficial Peroneal: Right Ankle Deep Peroneal: Right Ankle Sural & Sapenous Nerve: Right Time out Done?: Yes Time of Time out: 12:05 Procedure Details: PROCEDURE DETAILS: Risks, benefits and alternatives explained Informed consent obtained, and patient wishes to proceed Conscious sedation with indicated monitors Patient positioned, pertinent anatomy defined, sterile technique used Needle used: [ ] 3 1/8 inch Stimuplex Ultra 22ga [ ] 4 inch Stimuplex Ultra 20ga [ ] 6 inch Stimuplex Ultra 20ga [ ] 6 inch, Quikbloc over the needle catheter set 20ga [ ] 4 inch Quikbloc over the needle catheter set 20ga [x ]Other: [_# 25 1.5 inch needle ] Loss of twitch @ [____N/A ]mA [ ] Single Injection [ ] Catheter Ultrasound Guidance Used: [ ] Yes [x ] No Attempts:[ once ] Medicines injected: [ x ]Clonidine Amt:[ 30 mcgs ] [ x ]Dexamethasone Amt:[___2 mgs ] [x ]Ropivacaine Amt:[__0.5% 20 cc ] [ ]Bupivacaine Amt:[ ] [ ]Lidocaine Amt:[ ] [ ]Exparel 1.33%:[ ] [ ]Epinephrine Amt[ ] [ ]Other: [ ] Intermittent aspiration during local anesthetic administration No symptoms of intraneural or intravenous injection Patient tolerated procedure well Comments Right Ankle Block: Pts ankle and foot prepped with Betadine, Local anesthetic mixture is injected in divided doses to block the 1) post Tibial never behind Medial malleolus, 2) Sural nerves behind the lateral malleolus, 3) Superfical saphenous nerves in front of ankle are blocked by circumferential subcutaneous injection of 1015 mL of local anesthetic along with a line just proximal to the malleoli and anterior from the Achilles tendon medially to laterally , 4) Deep peroneal nerve was blocked with 5 cc of local anesthetic mixture deep to extensor retinaculum just lateral to the extensor hallucis longus tendon. ALEX BENDER MD Dec 20, 2024 12:37
[2024-12-20] MEDS ORDERED: ondansetron/PF 4mg/2ml inj ONE (13:16)
--- NOTE | 2024-12-20 14:00 | OPERATIVE REPORT ---
DATE OF SURGERY: 12/20/2024 DICTATING PHYSICIAN: Aiden Sanchez DPM SURGEON: Aiden Sanchez DPM PREOPERATIVE DIAGNOSES: * Complications of deep implant, right foot. * Recurrent hallux valgus deformity with arthrosis of the first metatarsophalangeal joint, right. POSTOPERATIVE DIAGNOSES: * Complications of deep implant, right foot. * Recurrent hallux valgus deformity with arthrosis of the first metatarsophalangeal joint, right. PROCEDURES: * Removal of deep implants, right foot consisting of plate, screws, and a bone staple. * Fusion of the first metatarsophalangeal joint, right foot. ANESTHESIA: Local anesthesia with an ankle block. The patient was given 2 g of cefazolin IV 30 minutes prior to skin incision. Tourniquet was used during the procedure. It was inflated to 250 mmHg after exsanguinating the right lower extremity. A Gram stain was taken intraoperatively for stat Gram stain to see if there is any bacteria. COMPLICATIONS: None. ESTIMATED BLOOD LOSS: Less than 5 mL. C-arm was used throughout the case. DESCRIPTION OF PROCEDURE: The patient was escorted to the operating room suite where she was prepared and draped in the usual sterile technique. The patient was placed in the supine position. The tourniquet was inflated to 250 mmHg after exsanguinating the right lower extremity. An additional ChloraPrep prepping was done by the surgeon prior to skin incision. The plate along the medial aspect of the first ray of the right foot was removed in toto with screws. The skin incision that was made over the plate ellipsed out the unhealthy dehisced skin tissue around the plate. Gram stain was taken intraoperatively. It appeared that there were no bony cortical erosive changes. It appeared that the bone graft successfully was fused. The bone in the surrounding tissue seemed healthy with no evidence of any deep abscess or pus pockets. The area was then irrigated with copious amounts of sterile saline and Irrisept was also used. Saline was used at the end of the case as well. Tissues were closed in layers for the medial incision. The next part of the procedure consisted of removing the bone staple along the proximal phalanx of the right hallux. After this was performed, an arthrotomy was performed to the first metatarsophalangeal joint. This was done by way of a dorsal medial incision just medial to the extensor hallucis tendon. The cuts along the joint for the first metatarsophalangeal joint were done by way of sagittal saw making planar cuts for better bony apposition. The patient has osteoporotic bone and because of this, there were several points of fixation. Two bone hollis were used, one dorsal, one medial, and then 2 other points of fixation consisted of 0.062 K-wires to reinforce the fixation process. It was determined that another plate probably would cause too much bulk around the soft tissue margins, which would potentially result in another wound dehiscence. The patient does have lupus, which is a connective tissue disease. C-arm was used throughout the case and C-arm confirmed appropriate alignment of the first metatarsophalangeal joint. The bone hollis were also in appropriate position. The K-wires were bent and then capped accordingly. Tissues were closed in layers. The tourniquet was deflated. Any bleeding vessels were Bovied. The appropriate postoperative dressing was applied and the patient was then escorted to PACU with the appropriate postoperative dressings. Aiden Sanchez DPM TID: [id number] RECEIPT: [id number] [facility]
[2024-12-20] MEDS: enalaprilat 1.25mg/ml 2ml vial IV PRN (14:08)
== END 2024-12-20 14:13 | disposition home or self-care (01) ==
LOC: PAS 08:55
PROVIDERS: ATTEND Podiatrist Foot & Ankle Surgery
DX: T84.84XA Pain due to internal orthopedic prosthetic devices, implants and grafts, initial encounter (principal); M20.11 Hallux valgus (acquired), right foot; G89.18 Other acute postprocedural pain; I10 Essential (primary) hypertension; J44.9 Chronic obstructive pulmonary disease, unspecified; K21.9 Gastro-esophageal reflux disease without esophagitis; I25.2 Old myocardial infarction; Z87.891 Personal history of nicotine dependence; Z79.899 Other long term (current) drug therapy; Z98.818 Other dental procedure status; Z98.890 Other specified postprocedural states; Z88.2 Allergy status to sulfonamides; Y79.2 Prosthetic and other implants, materials and accessory orthopedic devices associated with adverse incidents; Y92.89 Other specified places as the place of occurrence of the external cause
CPT/HCPCS: 20680; 28750; 36415; 64450; 71046; 73620; 80053; 82948; 85025; 85610; 85730; 87070; 87075; 87077; 87186; 93005; A4618; A6222; A6253; A6402; A6446; A6455; A7000; C1713; J1100; J2250; J2405; J2704; J2795; J3010; J7030; J7120; L3260; Z7506; Z7508; Z7512; Z7610; 76000; A6449; J3490